=== PATIENT | male | born 1950 | race Caucasian/White ===

== ENCOUNTER 2016-10-26 09:37 | Inpatient (IN) | payer OTHER ==
[2016-10-10 08:19] VITALS: BMI 26.0
--- NOTE | 2016-10-10 08:46 | PAT Medication Instructions ---
Service Date Oct 10, 2016. Current Home Medication List Aspirin (Aspirin Ec), 81 MG PO QAM Finasteride (Finasteride), 5 MG PO QAM Ketoconazole (Topical) (Xolegel), 1 DOSE TOP Q2D PRN for PRN Metronidazole (Topical) (Metrogel), 1 DOSE TOP Q2D PRN for PRN Psyllium (Eq Fiber Therapy), 1 TSP PO QAM Tamsulosin Hcl (Flomax), 0.4 MG PO QAM Medication Instructions For Your Scheduled Surgery - Hold the following medications the morning of surgery: Psyllium (Eq Fiber Therapy), 1 TSP PO QAM Ketoconazole (Topical) (Xolegel), 1 DOSE TOP Q2D PRN Metronidazole (Topical) (Metrogel), 1 DOSE TOP Q2D PRN - Take the following medications the morning of surgery with a sip of water OTHERWISE NOTHING TO EAT OR DRINK AFTER MIDNIGHT: Tamsulosin Hcl (Flomax), 0.4 MG PO QAM Aspirin (Aspirin Ec), 81 MG PO QAM Finasteride (Finasteride), 5 MG PO QAM If you have any questions please call us at [phone] or [phone] or [phone]
[2016-10-10 09:29] LABS: BASO % 0.4 %; BASO ABS # 0.02 K/uL (0-0.2); COMPLETE YES; EOS % 1.9 %; HEMATOCRIT 43.6 % (42-52); IG% 0.2 %; LYMPH % 32.9 %; LYMPH ABS # 1.52 K/uL (1.2-3.4); MEAN CORPUSCULAR HEMOGLOBIN 33.1 pg (25-34); MEAN CORPUSCULAR HGB CONC 34.9 g/dl (32-36); MEAN PLATELET VOLUME 10.4 fL (7.4-10.4); MONO % 10.2 %; NEUT % 54.4 %; PLATELET COUNT 183 K/uL (130-400); RED BLOOD COUNT 4.59 M/uL (4.7-6.1); WHITE BLOOD COUNT 4.62 K/uL (4.8-10.8)
--- NOTE | 2016-10-10 09:39 | DIAGNOSTIC IMAGING REPORT ---
CHEST PREADMISSION(PA/LAT) CLINICAL HISTORY: Preoperative evaluation. COMPARISON STUDY: No previous studies for comparison. FINDINGS: Lung volumes are normal. There is no pneumothorax or pleural effusion. Mild left basilar opacity favors atelectasis. There is no evidence of pulmonary edema. Cardiomediastinal silhouette is normal. IMPRESSION: 1. No acute cardiopulmonary findings. 2. Minimal left basilar opacity which favors atelectasis. Electronically signed by: Werner Lobo M.D. 10/10/2016 9:37 AM Dictated Date/Time: 10/10/2016 9:33 AM
[2016-10-10 09:41] LABS: INR 1.1 (0.9-1.1); PROTHROMBIN TIME (PATIENT) 11.3 SECONDS (9.0-12.0)
[2016-10-10 10:22] LABS: BUN/CREATININE RATIO 16.9 (10-20); CREATININE 0.97 mg/dl (0.60-1.40); POTASSIUM 4.4 mmol/L (3.5-5.1)
--- NOTE | 2016-10-20 01:47 | HISTORY & PHYSICAL EXAMINATION ---
DATE OF ADMISSION: 10/26/2016 CHIEF COMPLAINT: Right hip pain and discomfort. HISTORY OF PRESENT ILLNESS: A 66-year-old gentleman, who presents for surgical treatment of his right hip. He has had a several year history of increasing right hip pain and discomfort. This gradually got worse over the years. He says he has been diagnosed with hip arthritis for 15 years. It has become more debilitating recently. He enjoys exercising, but having more and more difficulty doing this. Pain is mostly in his groin and thigh area. When he is active he pays for it the next day. He would like to have his hip replaced. PAST MEDICAL HISTORY: Noncontributory. PAST SURGICAL HISTORY: 1. Pilonidal cyst excision. 2. Vasectomy. 3. Fatty lipoma resection. 4. Multiple skin biopsies. 5. Oral surgery. ALLERGIES: None. CURRENT MEDICINES: Include: 1. Tamsulosin once a day. 2. Unspecified medicine - once a day for prostate. SOCIAL HISTORY: A 65-year-old male. He is . Has one drink per day. FAMILY HISTORY: No heart disease, blood clots or diabetes. REVIEW OF SYSTEMS: Negative for diabetes, neurologic problems, vascular problems or bleeding disorders. He denies any chest pain or shortness of breath. He did have a brother who apparently of a blood clot, but the patient has no underlying clotting disorder. PHYSICAL EXAMINATION: GENERAL: Reveals a pleasant, healthy appearing, middle-aged male. He looks to be in good health. HEENT: Benign. NECK: Supple. No lymphadenopathy. LUNGS: Clear to auscultation. HEART: Regular rate and rhythm. ABDOMEN: Soft, nontender and nondistended. EXTREMITIES: Grossly neurovascularly intact except as follows: Examination of the right hip and leg reveals the patient walks with just a slight bit of a limp. Leg lengths clinically appear pretty equal. He has got a lot of stiffness with attempted hip motion. It does recreate his pain in his groin and thigh. Negative straight leg raise. Internal rotation is -10. X-RAYS: X-rays of the right hip were reviewed. It shows advanced right hip DJD. He has got complete loss of his superior joint space. He has got osteophytes around the femoral head as well as the acetabulum. ASSESSMENT: A 66-year-old male, with advanced right hip degenerative joint disease. He has failed conservative treatment and would like to have his right hip replaced. PLAN: We are going to take him to the operating room and do a right total hip replacement. The risks and benefits of this procedure were explained to the patient including but not limited to DVT, PE, , infection, neurological injury, vascular injury, bleeding problem, pain, limited range of motion, stiffness, failure to relieve symptoms, incomplete relief of symptoms, need for further surgery in the future, fracture, leg length inequality, nerve palsy, dislocation, etc. The patient understands and desires to proceed. Informed consent was obtained. The patient has had a recent oral surgery on an infected tooth. This has been removed and his physician is convinced that his infection is cured. Clinically, he seems to be doing well and will proceed as above. As far as discharge plans this patient is planning to use the [facility] home health program. XOCHITL
[~2016-10-26] VITALS: Ht 177.8 cm; Wt 81.7 kg
[2016-10-26] VITALS (17 sets, daily range): BP systolic 98–133; BP diastolic 59–79; PULSE 60–78; TEMP 36.4–37.1; O2SAT 96–100; Ht 177.8 cm; Wt 81.7 kg
[~2016-10-26 09:37] MED LIST: ACETAMINOPHEN 500 MG TAB PO SCH; ASPI81TA28 PO; BUPIVACAINE 0.5 % 5 MG/1 ML PF 10ML VIAL ONE; CEFAZOLIN 2000 MG/60 ML D5W 60 ML IV SCH; FAMOTIDINE 20 MG TAB PO SCH; GABAPENTIN 300 MG CAP PO SCH; LACTATED RINGER'S 1000ML 1,000 ML IV SCH; LACTATED RINGER'S 1000ML 500 ML IV ONE; LACTATED RINGER'S 1000ML IV SCH; METOCLOPRAMIDE HCL 10 MG TAB PO SCH; MIDAZOLAM HCL 1 MG/ML 2ML VIAL ONE; MoRPHine SULFATE PF 1 MG/ML 10 ML AMP/VIAL ONE; PROPOFOL IV EMULSION 10 MG/ML 20 ML VIAL IV ONE; SCOPOLAMINE 1.5 MG TDSY TD SCH; TRANEXAMIC ACID INJ 1,000 MG in SODIUM CHLORIDE 0.9% 100ML 100 ML IV SCH
[2016-10-26] MEDS ORDERED: BACITRACIN 50000 UNIT VIAL ONE (10:21)
[2016-10-26] MEDS ORDERED: BUPIVACAINE/EPINEPHRINE 0.5% MPF 1:200,000 30 ML VIAL ONE ×2 (10:21→11:13)
[2016-10-26] MEDS ORDERED: PHENYLEPHRINE 100MCG/ML 5ML SYR IV PRN (11:15)
[2016-10-26] MEDS ORDERED: ATROPINE SULFATE 0.1 MG/ML 5ML SYR IV PRN (11:15)
[2016-10-26] MEDS ORDERED: EpHEDrine SULFATE INJ 50 MG/ML AMP IV PRN ×2 (11:15→11:30)
[2016-10-26] MEDS ORDERED: ONDANSETRON INJ 2 MG/ML 2 ML VIAL IV PRN ×2 (11:15→11:30)
[2016-10-26] MEDS ORDERED: KETOROLAC TROMETHAMINE 30 MG/ML VIAL IV. PRN ×2 (11:15→11:30)
[2016-10-26] MEDS ORDERED: MEPERIDINE HCL 25 MG/ML CARP IV PRN ×2 (11:15→11:30)
[2016-10-26] MEDS ORDERED: NALOXONE HCL INJ 1 MG in SODIUM CHLORIDE 0.9% 1000ML 1,000 ML IV PRN ×4 (11:19)
[2016-10-26] MEDS ORDERED: SODIUM CHLORIDE 0.9% 1000ML 1,000 ML IV PRN (11:19)
[2016-10-26] MEDS ORDERED: NALOXONE HCL INJ 0.08 MG in SYRINGE 1.8 ML IV PRN (11:19)
[2016-10-26] MEDS ORDERED: LACTATED RINGER'S 1000ML 500 ML IV PRN (11:19)
[2016-10-26] MEDS ORDERED: MoRPHine SULFATE PF 1 MG/ML 10 ML AMP/VIAL EPI PRN (11:30)
[2016-10-26] MEDS ORDERED: NALBUPHINE HCL INJ 10 MG/ML AMP IV PRN (11:30)
[2016-10-26] MEDS ORDERED: NO NARCOTICS OR SEDATIVES SCH (11:30)
[2016-10-26] MEDS ORDERED: DiphenhydrAMINE HCL 50 MG/ML VIAL IV PRN (11:30)
[2016-10-26] MEDS ORDERED: PROMETHAZINE HCL INJ 25 MG in SODIUM CHLORIDE 0.9% 50ML 50 ML IV PRN (11:30)
[2016-10-26] MEDS ORDERED: NALOXONE HCL 0.4 MG/1 ML VIAL/CARP IV PRN (11:30)
--- NOTE | 2016-10-26 11:33 | History & Physical Bridge Note ---
H&P Re-Evaluation Bridge Note: I have examined the patient, reviewed the History & Physical and in the interval since the performance of the History & Physical I have noted the following changes of clinical significance: No changes noted
[2016-10-26] MEDS ORDERED: EpHEDrine SULFATE 50MG/5ML SYR ONE (12:09)
[2016-10-26] MEDS ORDERED: PHENYLEPHRINE 100MCG/ML 5ML SYR ONE (12:09)
[2016-10-26] MEDS ORDERED: PHENYLEPHRINE HCL INJ 10 MG/ML VIAL ONE (12:15)
--- NOTE | 2016-10-26 13:12 | [facility] Post Operative Brief Note ---
Immediate Operative Summary Operative Date Oct 26, 2016. Pre-Operative Diagnosis Right Hip Degenerative Joint Disease Post-Operative Diagnosis Right Hip Degenerative Joint Disease Procedure(s) Performed Right Total Hip Arthoplasty Surgeon Dr. Dee Director [place] Surgeon(s) Huan Cleveland PA-C Estimated Blood Loss 300 CC Findings Right Hip DJD Specimens A: Right Femoral Head Drains None Anesthesia Spinal Complication(s) None Disposition Recovery Room / PACU
[2016-10-26] MEDS ORDERED: BISACODYL 10 MG SUPP PR PRN (13:15)
[2016-10-26] MEDS ORDERED: ALUMINUM/MAGNESIUM/SIMETH (MAALOX MAX) 30 ML UDC PO PRN (13:15)
[2016-10-26] MEDS ORDERED: MAGNESIUM HYDROXIDE SUSP 30 ML UDC PO PRN (13:15)
[2016-10-26] MEDS ORDERED: KETOCONAZOLE TOP PRN (13:15)
[2016-10-26] MEDS ORDERED: METRONIDAZOLE 0.75% TOPICAL GEL 45 GM TUBE TOP PRN (13:15)
[2016-10-26] MEDS ORDERED: TAMSULOSIN HCL 0.4 MG CAP PO PRN (13:15)
[2016-10-26] MEDS ORDERED: SILVER SULFADIAZINE 1% CR 50 GM JAR EXT PRN (13:15)
--- NOTE | 2016-10-26 13:43 | DIAGNOSTIC IMAGING REPORT ---
AP PELVIS AND RIGHT HIP 2 VIEWS CLINICAL HISTORY: Degenerative arthritis COMPARISON STUDY: No previous studies for comparison. FINDINGS: There are postsurgical changes of a total right hip arthroplasty. The acetabular and femoral components appear well seated. There is no dislocation. There are no fractures. There are overlying skin meredith. There is air within soft tissues consistent with recent surgery. IMPRESSION: Postsurgical changes of a total right hip arthroplasty. Electronically signed by: Kostas Alejo M.D. 10/26/2016 1:42 PM Dictated Date/Time: 10/26/2016 1:41 PM
--- NOTE | 2016-10-26 13:48 | OPERATIVE REPORT ---
DATE OF OPERATION: 10/26/2016 SURGEON: Dr. Tomasz Dee. REGULATORY PROCESS MANAGER: SHERLY Russell PREOPERATIVE DIAGNOSIS: Right hip degenerative joint disease. POSTOPERATIVE DIAGNOSIS: Same. PROCEDURE PERFORMED: Right ceramic on highly cross-linked polyethylene uncemented total hip arthroplasty. COMPLICATIONS: None. ESTIMATED BLOOD LOSS: 300 mL. FLUID REPLACEMENT: 1300 mL crystalloid fluid replacement. ANESTHESIA: Spinal. DRAINS: None. SPECIMENS: Right femoral head sent for pathology. OPERATIVE FINDINGS: Operative findings revealed advanced right hip DJD. He had fairly extensive diffuse grade 4 [id number] changes of the femoral head and acetabulum. Some small anterior osteophytes. Fairly large medial osteophyte. Small hip joint effusion. Some mild synovitis. OPERATIVE INDICATIONS: The patient is a 66-year-old gentleman who has had a several year history of increasing hip pain and discomfort that has gotten significantly worse over the past year. He failed all conservative treatment. He elected to proceed with operative treatment. OPERATIVE IMPLANTS: Operative implants consisted of: 1. A Biomet G7 size 56-mm acetabular shell. 2. A 6.5 cancellous acetabular screws, 1 at 35 mm in length and 1 at 25 mm in length. 3. An apex hole eliminator. 4. Highly cross-linked polyethylene liner with a 56 mm outer diameter and 36 mm inner diameter with a ramirez placed inferior and posterior. 5. A DePuy size 15 large stature high offset femoral stem. 6. A +1.5/36 mm ceramic articular ball. OPERATIVE PROCEDURE: The patient was taken to the operating room, identified and placed on the operating table in the supine position. All contact areas were appropriately padded. IV antibiotics were provided by anesthesia team. A spinal anesthetic had been implemented in the holding area. Yi catheter was placed in sterile fashion. The patient was then placed in the left lateral decubitus position. An axillary roll was placed. Stulberg hip positioner was used for positioning. The right hip and leg were then prepped and draped in the usual sterile fashion. A posterolateral approach to the right hip was then performed through a curvilinear incision centered over the greater trochanter. Sharp dissection was carried out through the subcutaneous tissue down to the level of the IT band and gluteal fascia. The IT band and gluteal fascia was incised longitudinally in line with the skin incision. The underlying greater trochanteric bursa was excised. The piriformis and external rotators were tagged and taken very carefully off the posterior aspect of the hip joint capsule. Great care was taken throughout the procedure to protect the sciatic nerve at all times. A posterior capsulotomy was then performed leaving a large flap for later repair. Hip was internally rotated and dislocated. Femoral neck osteotomy cut was made with the final cut 12 mm above the lesser trochanter. Femoral head was removed and sent for pathology. The femur was retracted anteriorly. Attention was then drawn to the acetabulum. The acetabular labrum was excised. The pulvinar fat was excised. Sequential reaming of the acetabulum was then performed beginning with a size 51 and progressing up to 55. A 56-mm Biomet G7 acetabular shell was then placed in about 40 degrees of lateral opening and 20 degrees of anteversion. It was fixed with two 6.5 cancellous acetabular screws. A trial liner was placed. Some small osteophytes were removed anteriorly. Attention was then drawn to the femur. The proximal femur was entered with Drivableie cutter followed by canal finder and lateralizing reamer. Sequential reaming of the femur was then performed beginning with a size 10 and progressing up to a 14.5. We got good chatter at 14.5. I broached beginning with a size 12 small and progressing up to a 15 large. I could not quite get this down to the calcar cut, but it was very close. We then trialed the hip. The hip was fully stable with all articular balls. With the +5, I just thought his length was a little bit long. With the standard implants, the soft tissue tension was a little bit lax, so we did use the high offset implant. By doing this, we were able to improve soft tissue tension and shortened his leg with a slightly smaller neck length. A +1.5 articular ball seemed to provide full stability of the hip in full extension, external rotation, flexion to 90 degrees, and internal rotation to 60+ degrees and the leg lengths appeared appropriate. I did place a ramirez very inferior and posterior to maximize stability in flexion. We elected to place these implants. All trial implants were removed. An apex hole eliminator was placed. Highly cross-linked polyethylene liner with a ramirez placed inferior and posterior was placed. A 15 large stature AML femoral stem was placed. We got excellent scratch fit. A +1.5 size 36-mm ceramic articular ball was placed. Hip was located and once again found to be stable. Attention was then drawn toward closing. The wound was irrigated with copious amounts of pulsatile lavage solution. I did inject locally with 60 mL of 0.5% Marcaine with epinephrine. The posterior capsule and external rotators were then repaired through drill holes in the posterior trochanter with #2 Ti-Cron suture. The IT band and gluteal fascia were then closed with #1 PDS suture in running fashion. The subcutaneous tissues were then closed with 2 layers, the deep layer in #1 Vicryl suture and the subcutaneous tissues with 2-0 Dexon suture in a buried interrupted fashion. Skin was closed skin meredith. Leg was then cleaned and dried and a sterile dressing with Xeroform, 4 x 4, sterile ABD pad and foam tape was applied. The patient then transferred to the recovery room in stable condition. The patient tolerated the procedure well with no complications. All needle and sponge counts were correct at the end of the operation. I attest to the content of the Intraoperative Record and any orders documented therein. Any exceptions are noted below. XOCHITL
--- NOTE | 2016-10-26 14:31 | Anesthesiology Progress Note ---
Anesthesia Post Op Note Date & Time Oct 26, 2016 at 14:30 Vital Signs Pain Intensity: 0 Vital Signs Past 12 Hours Date Time Temp Pulse Resp B/P Pulse Ox O2 Delivery O2 Flow Rate FiO2 10/26/16 14:00 37 70 16 104/61 99 Nasal Cannula 2 10/26/16 13:50 71 16 108/61 99 Nasal Cannula 2 10/26/16 13:40 77 16 115/67 99 Nasal Cannula 2 10/26/16 13:30 80 16 121/68 100 Nasal Cannula 2 10/26/16 13:20 79 12 116/59 100 Nasal Cannula 2 10/26/16 13:10 36.0 86 12 109/61 97 Room Air 10/26/16 10:17 36.6 68 20 133/79 98 Room Air Notes Mental Status: alert / awake / arousable, participated in evaluation Pt Amnestic to Procedure: Yes Nausea / Vomiting: adequately controlled Pain: adequately controlled Airway Patency, RR, SpO2: stable & adequate BP & HR: stable & adequate Hydration State: stable & adequate Anesthetic Complications: no major complications apparent
[2016-10-26] MEDS: D5W AND 1/2NSS + 20MEQ KCL 1,000 ML IV SCH ×2 (16:01→23:29)
[2016-10-26] MEDS: CHECK SCOPOLAMINE PATCH PLACEMENT SCH ×2 (16:01→23:28)
--- NOTE | 2016-10-26 17:59 | PROGRESS NOTE ---
DATE: 10/26/2016 SUBJECTIVE: A 66-year-old gentleman postop from a right total hip replacement. He is doing well. Not having any pain yet. No chest pain or shortness of breath. Not feeling dizzy or lightheaded. No nausea. OBJECTIVE: VITAL SIGNS: Temperature is 36.4. Vital signs stable. GENERAL: Reveals a healthy, pleasant, middle-aged male. He is sitting up in bed and looks comfortable. LUNGS: Clear to auscultation. HEART: Regular rate and rhythm. ABDOMEN: Soft, nontender, nondistended. EXTREMITIES: Grossly neurovascularly intact except as follows: Examination of the right hip and leg reveals the dressing to be clean, dry and intact. His leg lengths were equal. Hip is located. He can dorsiflex and plantarflex his foot appropriately. He is neurologically intact. X-RAYS: Images of the right hip from the recovery room were reviewed. It shows a right uncemented total hip arthroplasty. Components looked to be in good position. No signs of problems. ASSESSMENT: A 66-year-old gentleman postop from a right total hip replacement, doing well. His hip is located. His pain is controlled. He is neurologically intact. PLAN: 1. DVT prophylaxis including thigh-high TEDs, SCDs, and aspirin twice a day. 2. PT/OT. Weightbearing as tolerated. Right total hip protocol. 3. Pain control, doing well with current pain regimen. 4. IV antibiotics x 24 hours. 5. Disposition: Plan to discharge to home with some home health once adequately recovered.
[2016-10-26] MEDS: CEFAZOLIN IV 2,000 MG in DEXTROSE 5% 50ML 50 ML IV SCH (18:45)
[2016-10-26] MEDS: FERROUS GLUCONATE 324 MG TAB PO SCH (18:46)
[2016-10-26] MEDS: ACETAMINOPHEN 500 MG TAB PO SCH (18:46)
[2016-10-26] MEDS: KETOROLAC TROMETHAMINE 15 MG/ML VIAL IV. SCH ×2 (18:46→23:30)
[2016-10-26] MEDS ORDERED: TRANEXAMIC ACID INJ 1,000 MG in SODIUM CHLORIDE 0.9% 100ML 100 ML IV ONE (19:00)
[2016-10-26] MEDS: ASPIRIN 325 MG ECTAB PO SCH (21:28)
[2016-10-26] MEDS: DOCUSATE SODIUM 100 MG CAP PO SCH (21:28)
[2016-10-27] VITALS (9 sets, daily range): BP systolic 92–98; BP diastolic 50–56; PULSE 62–68; TEMP 36.8–37.4; O2SAT 92–99
[2016-10-27] MEDS: ACETAMINOPHEN 500 MG TAB PO SCH ×3 (02:24→17:49)
[2016-10-27] MEDS: CEFAZOLIN IV 2,000 MG in DEXTROSE 5% 50ML 50 ML IV SCH (02:24)
[2016-10-27] MEDS ORDERED: ZOLPIDEM TARTRATE 5 MG TAB PO PRN (05:00)
[2016-10-27] MEDS ORDERED: ONDANSETRON INJ 2 MG/ML 2 ML VIAL IV PRN (05:00)
[2016-10-27] MEDS ORDERED: MoRPHine SULFATE 2 MG/ML CARP IV PRN (05:00)
[2016-10-27] MEDS ORDERED: OXYCODONE HCL IR 5 MG TAB (IMMEDIATE RELEASE) PO PRN (05:00)
[2016-10-27] MEDS ORDERED: DC INTRASPINAL MORPHINE ONE (05:00)
[2016-10-27] MEDS ORDERED: METOCLOPRAMIDE HCL INJ 5 MG/ML 2 ML VIAL IV PRN (05:00)
[2016-10-27] MEDS: KETOROLAC TROMETHAMINE 15 MG/ML VIAL IV. SCH ×3 (06:04→17:50)
[2016-10-27 06:36] LABS: BASO % 0.1 %; BASO ABS # 0.01 K/uL (0-0.2); COMPLETE YES; EOS % 0.7 %; HEMATOCRIT 32.4 % (42-52); IG% 0.1 %; LYMPH % 18.4 %; LYMPH ABS # 1.26 K/uL (1.2-3.4); MEAN CELL VOLUME 96.7 fL (80-100); MEAN CORPUSCULAR HEMOGLOBIN 32.5 pg (25-34); MEAN CORPUSCULAR HGB CONC 33.6 g/dl (32-36); MEAN PLATELET VOLUME 9.9 fL (7.4-10.4); MONO % 8.8 %; NEUT % 71.9 %; PLATELET COUNT 127 K/uL (130-400); RED BLOOD COUNT 3.35 M/uL (4.7-6.1); WHITE BLOOD COUNT 6.83 K/uL (4.8-10.8)
[2016-10-27 07:09] LABS: BUN/CREATININE RATIO 15.9 (10-20); CALCIUM 7.8 mg/dl (8.5-10.1); CREATININE 0.79 mg/dl (0.60-1.40); POTASSIUM 3.8 mmol/L (3.5-5.1)
[2016-10-27] MEDS ORDERED: RXC5 PO (08:03)
[2016-10-27] MEDS ORDERED: ACET-1138 PO (08:03)
[2016-10-27] MEDS ORDERED: ASPEC325 PO (08:03)
[2016-10-27] MEDS ORDERED: FRRG PO (08:03)
--- NOTE | 2016-10-27 08:04 | Discharge Instructions ---
Discharge Instructions Date of Service Oct 27, 2016. Admission Reason for Admission: Right Hip Degenerative Joint Disease Discharge Discharge Diagnosis / Problem: Right HIp Replacement Discharge Goals Goal(s): Decrease discomfort, Improve function, Increase independence, Improve disease control, Therapeutic intervention Activity Recommendations Activity Limitations: per Instructions/Follow-up section (Total Hip PRecautions ) Weightbearing Status: Right weightbearing . Instructions / Follow-Up Instructions / Follow-Up ACTIVITY RECOMMENDATIONS: Physical Therapy: * Aggressive physical therapy is not usually needed. You will learn to take care of yourself safely and walk. * Follow the "Hip Precautions Instructions." * In some cases, the licensed master social worker at the hospital will arrange to have a therapist come to your house for the first couple of weeks to help you learn these skills. * You need to practice on your own or with the help of a family member as needed. * When you learn these skills, most of the therapy can be done on your own. Home Exercise: * You were shown a series of exercises in the hospital. Do these exercises three to four times each day including the exercises you were shown in physical therapy. Walking: * Get up and walk several times each day. For the first four weeks, try not to stand or walk for more than one hour at a time. If you do stand or walk for more than one hour, you will not hurt anything, but your leg will likely swell. * As you feel comfortable, you may change from the walker or crutches to a cane and then to independent walking. MEDICATIONS: New Medicine: * You will likely be taking one or more of these medicines: 1. Oxycodone - Take, as directed, when you need it, every four to six hours to control your pain. 2. Iron Sulfate - Take three times each day for the month after surgery to help you replace the blood lost during surgery. 3. Aspirin - Thins your blood to lessen the chance of forming a blood clot. * The most common side effects of pain medicine and iron are nausea and constipation. If nausea or constipation is too much of a problem or if you have any questions about your new medicines or doses, call [facility] at . We will try to help you manage these issues. VERY IMPORTANT TO READ AND REVIEW" Pain: * The immediate post-operative period after hip replacement surgery is often quite painful. * You are given a prescription for pain medicine. You should take it, as directed, when you need it, especially before physical therapy and before going to bed. Pain that interferes with sleep is very common and can last several months. * You will likely need pain medicine for the first two to four weeks. It will not stop all of the pain. The pain will lessen and as you feel better, you may change to milder pain medicine such as Tylenol. * The most common side effects of pain medicine are nausea and constipation, so don't take more than you need. SPECIAL CARE INSTRUCTIONS: TEDs/Elastic Stockings: * The white elastic stockings help limit swelling and prevent blood clots from forming in your legs. The more you wear them, the more they work. * Wear them for six weeks. Prevention of Infection: * Take antibiotics one hour before any dental cleaning, dental work, urological procedure, gastrointestinal procedure or any invasive surgery in order to prevent your new joint from getting infected. * You may get the antibiotics from the doctor performing the procedure or you may call our office at before and we will call in a prescription to the pharmacy of your choice. Things to Watch For: * Drainage from the incision site that occurs more than one week after your surgery. * Severely increased leg pain or swelling. * Increased redness at the incision site. * Fever above 102 degrees Fahrenheit. * Unusual chest pain or shortness of breath. * Unusual pain or burning with urination. Call [facility] at with any of the above problems or if you have any questions about your medicines or recovery. FOLLOW UP VISIT: Make an appointment to see your doctor for approximately two weeks after surgery for a progress check and staple removal by calling the office at . Current Hospital Diet Patient's current hospital diet: Regular Diet Discharge Diet Recommended Diet: Regular Diet Procedures Procedures Performed: Right Total Hip Arthoplasty Pending Studies Studies pending at discharge: no Medical Emergencies . Who to Call and When: Medical Emergencies: If at any time you feel your situation is an emergency, please call [phone] immediately. . Non-Emergent Contact Non-Emergency issues call your: Surgeon . "Provider Documentation" section prepared by Tomasz Dee. . VTE Core Measure Inpt VTE Proph given/why not?: Other Anticoagulation, T.E.D. Stockings, SCD's
[2016-10-27] MEDS: D5W AND 1/2NSS + 20MEQ KCL 1,000 ML IV SCH (08:24)
[2016-10-27] MEDS: CHECK SCOPOLAMINE PATCH PLACEMENT SCH ×3 (08:24→23:47)
[2016-10-27] MEDS: PANTOprazole SOD 40 MG TAB PO SCH (08:36)
[2016-10-27] MEDS: ASPIRIN 325 MG ECTAB PO SCH ×2 (08:36→23:59)
[2016-10-27] MEDS: TAMSULOSIN HCL 0.4 MG CAP PO SCH (08:36)
[2016-10-27] MEDS: MULTIVITAMIN TAB PO SCH (08:36)
[2016-10-27] MEDS: DOCUSATE SODIUM 100 MG CAP PO SCH ×2 (08:36→23:59)
[2016-10-27] MEDS: FINASTERIDE 5 MG TAB PO SCH (08:36)
[2016-10-27] MEDS: FERROUS GLUCONATE 324 MG TAB PO SCH ×3 (08:37→17:49)
[2016-10-27] MEDS: PSYLLIUM 58.6% PWD PACK S\\F PO SCH (08:37)
[2016-10-27] MEDS: TAPENTADOL ER 50 MG TABCR PO SCH ×2 (08:40→23:59)
--- NOTE | 2016-10-27 08:52 | PROGRESS NOTE ---
DATE: 10/27/2016 SUBJECTIVE: A 66-year-old gentleman postop day 1 from right hip replacement. He is doing quite well. He rates his pain as pretty minimal. No chest pain or shortness of breath. Not feeling dizzy or lightheaded. OBJECTIVE: VITAL SIGNS: Temperature 37.4. Vital signs stable. PHYSICAL EXAMINATION: GENERAL: Reveals a healthy, pleasant, middle-aged male. He is sitting up in bed reading a book and looks pretty comfortable. LUNGS: Clear to auscultation. HEART: Regular rate and rhythm. ABDOMEN: Soft, nontender, nondistended. EXTREMITIES: Grossly neurovascularly intact except as follows: Examination of the right hip and leg reveals the dressing to be clean, dry and intact. Thigh is soft and supple. His hip is located. He is neurologically intact. Not much swelling. LABORATORY DATA: Hemoglobin 10.9, hematocrit 32.4. Electrolytes are stable. ASSESSMENT: A 66-year-old gentleman postop day 1 from a right total hip replacement, doing pretty well. Pain seems to be controlled. His hip is located. He is neurologically intact. PLAN: 1. DVT prophylaxis including thigh-high TEDs, SCDs, and aspirin twice a day. 2. PT/OT. Weightbearing as tolerated. Right total hip protocol. 3. Pain control, doing pretty well with current pain regimen. 4. Disposition: Plan to discharge to home with some home health once adequately recovered.
[2016-10-27] MEDS ORDERED: METRONIDAZOLE TOP PRN (15:15)
[2016-10-27] MEDS ORDERED: KETOCONAZOLE 2% EXT PRN (16:00)
[2016-10-28] MEDS ORDERED: OXYCODONE IR HOME PACK PO SCH
[2016-10-28] MEDS: ACETAMINOPHEN 500 MG TAB PO SCH ×2 (02:48→10:16)
[2016-10-28] MEDS: KETOROLAC TROMETHAMINE 15 MG/ML VIAL IV. SCH ×2 (06:33)
[2016-10-28 06:37] VITALS: BP 93/53; PULSE 67; TEMP 36.9; O2SAT 95
--- NOTE | 2016-10-28 08:31 | PROGRESS NOTE ---
DATE: 10/28/2016 SUBJECTIVE: A 66-year-old gentleman postop day #2 from right total hip replacement. He is doing well. He rates his pain at worst as 5 after therapy and otherwise at 1 or 2. No chest pain or shortness of breath. He has already been up and walking the hallway this morning. OBJECTIVE: VITAL SIGNS: Temperature is 36.9. Vital signs stable. EXTREMITIES: Examination of the right hip and leg reveals the patient is sitting up in his chair and looks pretty comfortable. The dressings are clean, dry and intact. Hip is located. He can dorsiflex and plantarflex his foot appropriately. He is neurologically intact. ASSESSMENT: A 66-year-old gentleman postop day #2 from a right total hip replacement, doing well. Pain is controlled. Therapy has gone well. PLAN: 1. DVT prophylaxis including thigh-high TEDs, SCDs, and aspirin twice a day. 2. PT/OT. Weight bear as tolerated. Right total hip protocol. 3. Pain control, doing well with current pain regimen. 4. Disposition: Plan to discharge to home with some home later today. XOCHITL
[2016-10-28] MEDS: MULTIVITAMIN TAB PO SCH (08:34)
[2016-10-28] MEDS: FINASTERIDE 5 MG TAB PO SCH (08:34)
[2016-10-28] MEDS: TAMSULOSIN HCL 0.4 MG CAP PO SCH (08:35)
[2016-10-28] MEDS: FERROUS GLUCONATE 324 MG TAB PO SCH (08:35)
[2016-10-28] MEDS: PANTOprazole SOD 40 MG TAB PO SCH (08:35)
[2016-10-28] MEDS: DOCUSATE SODIUM 100 MG CAP PO SCH (08:40)
[2016-10-28] MEDS: TAPENTADOL ER 50 MG TABCR PO SCH (08:40)
[2016-10-28] MEDS: ASPIRIN 325 MG ECTAB PO SCH (08:40)
[2016-10-28] MEDS: PSYLLIUM 58.6% PWD PACK S\\F PO SCH (08:58)
[2016-10-28] MEDS ORDERED: NURSING VERBAL MED ORDER ONE (09:00)
[2016-10-28 09:02] VITALS: BP 93/53; PULSE 67; TEMP 36.9; O2SAT 95
[2016-10-28] MEDS ORDERED: FERROUS GLUCONATE 324 MG TAB PO SCH (09:45)
--- NOTE | 2016-11-08 06:32 | DISCHARGE SUMMARY ---
ADMITTING PHYSICIAN AND SURGEON: Dr. Dee. ADMITTING DIAGNOSIS: Right hip degenerative joint disease. SURGERY PERFORMED: Right total hip arthroplasty. SECONDARY DIAGNOSES: Noncontributory. CONSULTS: None obtained. HISTORY AND PHYSICAL EXAMINATION: Well documented in the patient's chart. HOSPITAL COURSE: The patient was admitted on 10/26/2016 underwent total hip arthroplasty, tolerated the procedure well. There were no complications. He was transferred to the PACU postoperatively and later to the orthopedic floor for further care. He was given Ancef for antibiotic prophylaxis, CAM stockings, SCDs and aspirin for DVT prophylaxis. Hemoglobin, hematocrit and vital signs were monitored during his hospital stay and remained stable. He developed some postoperative anemia, did not require any blood transfusions. There were no complications. By postoperative day #2, he was tolerating a general diet, pain was controlled with oral pain medicine. He was participating in physical therapy and had no signs or symptoms of deep vein thrombosis. On postop day #2, he was discharged home and set up with home health services. He was given printed discharge instructions including prescriptions for extra strength Tylenol, aspirin 325 mg b.i.d., iron supplement and oxycodone. Continue her home medicines with the exception of his home dose of aspirin which was changed. Continue physical therapy, weightbearing as tolerated, CAM stockings, total hip precautions and follow up in 10-12 days or sooner if there are any problems or concerns.
[2017-01-22] MEDS ORDERED: TAMS0.4C38 PO (08:19)
[2017-01-22] MEDS ORDERED: PRS5 PO (08:19)
[2017-01-22] MEDS ORDERED: PSYL48.511 PO (08:19)
[2017-01-22] MEDS ORDERED: METR0.7527 TOP (08:19)
[2017-01-22] MEDS ORDERED: KETO2GEL2 TOP (08:19)
[2017-01-23] MEDS ORDERED: LVNIS80 SQ (13:34)
[2017-01-23] MEDS ORDERED: CMD75 PO (13:36)
[2017-01-23] MEDS ORDERED: LVNIS120 SC (13:56)
[2017-01-23] MEDS ORDERED: ASPEC81 PO (17:29)
== END 2016-10-28 10:42 | disposition home health service (06) | DRG 470 ==
LOC: ENRESERVTM → ENRESERVDT → C.ACU 09:37 → C.3E 13:16
PROVIDERS: ADMIT Orthopaedic Surgery Sports Medicine; ATTEND Orthopaedic Surgery Sports Medicine
PROC: 0SR904A Replacement of Right Hip Joint with Ceramic on Polyethylene Synthetic Substitute, Uncemented, Open Approach (ICD-10-PCS; principal; 2016-10-26 11:15)
DX: M16.11 Unilateral primary osteoarthritis, right hip (principal); M25.451 Effusion, right hip; M65.9 Synovitis and tenosynovitis, unspecified; N40.0 Benign prostatic hyperplasia without lower urinary tract symptoms; Z87.891 Personal history of nicotine dependence; Z79.82 Long term (current) use of aspirin; Z79.899 Other long term (current) drug therapy

== ENCOUNTER 2017-01-22 20:07 | Inpatient (IN) | payer OTHER ==
[~2017-01-22] VITALS: Ht 177.8 cm; Wt 78.7 kg
[~2017-01-22 20:07] MED LIST changes: +ACET-1138 PO; -ACETAMINOPHEN 500 MG TAB PO SCH; +ASPEC325 PO; -ASPI81TA28 PO; -BUPIVACAINE 0.5 % 5 MG/1 ML PF 10ML VIAL ONE; -CEFAZOLIN 2000 MG/60 ML D5W 60 ML IV SCH; -FAMOTIDINE 20 MG TAB PO SCH; +FRRG PO; -GABAPENTIN 300 MG CAP PO SCH; +KETO2GEL2 TOP; -LACTATED RINGER'S 1000ML 1,000 ML IV SCH; -LACTATED RINGER'S 1000ML 500 ML IV ONE; -LACTATED RINGER'S 1000ML IV SCH; -METOCLOPRAMIDE HCL 10 MG TAB PO SCH; +METR0.7527 TOP; -MIDAZOLAM HCL 1 MG/ML 2ML VIAL ONE; -MoRPHine SULFATE PF 1 MG/ML 10 ML AMP/VIAL ONE; -PROPOFOL IV EMULSION 10 MG/ML 20 ML VIAL IV ONE; +PRS5 PO; +PSYL48.511 PO; +RXC5 PO; -SCOPOLAMINE 1.5 MG TDSY TD SCH; +TAMS0.4C38 PO; -TRANEXAMIC ACID INJ 1,000 MG in SODIUM CHLORIDE 0.9% 100ML 100 ML IV SCH
[2017-01-22] MEDS ORDERED: IBUP-1277 PO (20:34)
[2017-01-22] MEDS ORDERED: SODIUM CHLORIDE 0.9% 1000ML 1,000 ML IV STA (20:35)
[2017-01-22] MEDS ORDERED: ONDANSETRON INJ 2 MG/ML 2 ML VIAL IV STA (20:35)
[2017-01-22] MEDS ORDERED: FENTANYL CITRATE INJ 50 MCG/1 ML 2 ML VIAL IV STA (20:35)
--- NOTE | 2017-01-22 20:50 | EMERGENCY ROOM VISIT NOTE ---
History Report prepared by Wyatt: Kalina Watters Under the Supervision of: Dr. Mandie Reyes M.D. First contact with patient: 20:15 Chief Complaint: PAIN (GENERALIZED) Stated Complaint: BACK PAIN - LEFT SIDE - BOTTOM OF RIB CAGE History of Present Illness The patient is a 66 year old male who presents to the Emergency Room with complaints of constant left sided back pain starting about 18 hours ago and worsening about 2-3 hours ago. He describes the pain to be located at the bottom of the left rib cage. He denies any pain radiation. He has worsening pain with breathing. He denies any shortness of breath with exertion. He currently rates a pain intensity of 5-6/10. He took Ibuprofen without relief. The patient has a history of kidney stones but denies any similar symptoms. He has a history of hip replacement occurring at the end of September and he was placed on Aspirin. He does not have a history of blood clots. He traveled to [place] via airplane last week. He did not have any [id number] travels. He did not have any recent falls or trauma. The patient denies any cough, urinary symptoms, lower extremity swelling, or any other complaints. Source of History: patient Onset: about 18 hours ago Position: back (left sided) Symptom Intensity: 5-6/10 Timing: constant, worsening Modifying Factors (Worsening): breathing Modifying Factors (Relieving): ibuprofen (without relief) Associated Symptoms: No cough, No urinary symptoms Review of Systems See HPI for pertinent positives & negatives. A total of 10 systems reviewed and were otherwise negative. Past Medical & Surgical Medical Problems: (1) BPH (benign prostatic hypertrophy) (2) DVT (deep venous thrombosis) (3) History of colon polyps (4) History of dysplastic nevus (5) History of urinary calculi (6) Kidney stones (7) Pulmonary embolism (8) Right Hip DJD (9) Rosacea Surgical Problems: (1) History of total left hip arthroplasty (2) Status post excision of lipoma (3) Status post surgical removal of pilonidal cyst Family History FH: pneumonia Social History Smoking Status: Never Smoker Marital Status: Occupation Status: retired Current/Historical Medications Scheduled Aspirin (Aspirin EC Low Dose), 1 TAB PO DAILY Enoxaparin (Lovenox), 120 MG SC DAILY Finasteride (Finasteride), 5 MG PO QAM Psyllium (Eq Fiber Therapy), 1 TSP PO QAM Tamsulosin Hcl (Flomax), 0.4 MG PO QAM Warfarin Sod (Coumadin), 1 TAB PO DAILY Scheduled PRN Ketoconazole (Topical) (Xolegel), 1 APPLN TOP Q2D PRN for Rosacea Metronidazole (Topical) (Metrogel), 1 APPLN TOP UD PRN for Rosacea Allergies Coded Allergies: Adhesives (Verified Allergy, Mild, RASH SORE, 10/26/16) CAN USE PAPER TAPE NO KNOWN DRUG ALLERGIES (Verified Allergy, Unknown, ., 10/26/16) Physical Exam Vital Signs Date Time Temp Pulse Resp B/P (MAP) Pulse Ox O2 Delivery O2 Flow Rate FiO2 01/22/17 22:09 Nasal Cannula 3.0 01/22/17 21:55 85 16 126/75 94 Room Air 01/22/17 21:15 84 Room Air 01/22/17 21:11 89 01/22/17 20:08 37.1 95 18 143/84 95 Room Air Physical Exam Vital signs reviewed. General: Well-appearing, in no significant distress. HEENT: No scleral icterus, PERRLA, neck supple. Atraumatic. Cardiovascular: Regular rate and rhythm, no extra sounds. Pulmonary: Clear to auscultation bilaterally, normal work of breathing. Abdomen: Soft, nontender, nondistended, positive bowel sounds. Musculoskeletal: Atraumatic, no peripheral edema. CVA tenderness over the left, pain with deep inspiration. Neurologic: Patient awake alert and oriented x 3, full strength in all 4 extremities. Cranial nerves 2 through 12 grossly intact. Skin: Warm, dry, no rash Medical Decision & Procedures ER Provider Diagnostic Interpretation: X-ray results as stated below per interpretation by me and the radiologist: CHEST ONE VIEW PORTABLE CLINICAL HISTORY: 66 years-old Male presenting with L lower rib/back pain. TECHNIQUE: Portable upright AP view of the chest was obtained. COMPARISON: 10/10/2016. FINDINGS: Mildly low lung volumes with hypoventilatory changes, which may be due to inspiratory effort. Cardiomediastinal silhouette otherwise normal. Interval development of minimal opacity at the left lung base. No other focal infiltrate. No large effusion or pneumothorax. Osseous structures normal. Gaseous distention of colon. IMPRESSION: 1. Left basilar opacity new from prior, likely atelectasis. Electronically signed by: Osorio Ortega M.D. 01/22/2017 9:07 PM Dictated Date/Time: 01/22/2017 9:[address] results as stated below per my review and radiologist interpretation: ABD/PELVIS NO IV OR ORAL CONT CLINICAL HISTORY: 66 years-old Male presenting with L flank pain. TECHNIQUE: Multidetector CT of the abdomen and pelvis was performed without the use of intravenous contrast. IV contrast: None. A dose lowering technique was used consistent with the principles of ALARA (as low as reasonably achievable). COMPARISON: None. CT DOSE (mGy.cm): The estimated cumulative dose is 399.18 mGy.cm. FINDINGS: Mopper topogram: Total right hip arthroplasty. Lung bases: Dependent groundglass opacities, possibly atelectasis. Normal heart size. No pericardial or pleural effusion. Liver: Normal morphology. Normal parenchymal density. Two focal hypodensities along the fissure, indeterminate but possibly cysts. Biliary: No gross evidence of biliary ductal dilatation. Normal gallbladder. Pancreas: Normal. Fat containing region along the dorsum of the pancreas most consistent with invagination of fat. Spleen: Normal. Adrenal glands: Normal. Kidneys and ureters: Nonobstructing 2 mm calculus in the interpolar region of the right kidney (series 3 image 233). No additional calculus. No hydronephrosis. Hypodensity posteriorly in the interpolar region of the left kidney likely cysts but indeterminate. Ureters normal. Gastrointestinal tract: Mild stool burden in the mildly distended right colon. Inspissated material in the distal small bowel may suggest delayed transit. No bowel obstruction. Peritoneal cavity: No free fluid or intraperitoneal gas. Bladder: Incompletely evaluated secondary to underdistention. Pelvic organs: Prostate and seminal vesicles normal. Vasculature: Normal noncontrast appearance. Lymph nodes: No lymphadenopathy allowing for noncontrast technique. Abdominal wall: Normal. Musculoskeletal: Total right hip arthroplasty. IMPRESSION: 1. Nonobstructing 2 mm calculus in the right kidney. No acute intra-abdominal pathology. Electronically signed by: Osorio Ortega M.D. 01/22/2017 9:38 PM Dictated Date/Time: 01/22/2017 9:27 PM (CHEST FOR PE) ANGIO WITH CLINICAL HISTORY: 66 years-old Male presenting with chest pain and shortness of breath. TECHNIQUE: Multidetector CT angiography of the chest was performed after administration of intravenous contrast. 3-D volumetric and maximum intensity projection (MIP) images were subsequently reconstructed for review. IV contrast: 116 mL of Optiray 320. A dose lowering technique was used consistent with the principles of ALARA (as low as reasonably achievable). COMPARISON: None. CT DOSE (mGy.cm): The estimated cumulative dose is 259.56 mGy.cm. FINDINGS: Mopper topogram: Unremarkable. Pulmonary vasculature: The study is adequate for assessment of the pulmonary vascular tree. Multiple filling defects in the left lower lobe pulmonary artery and segmental vessels. Less extensive filling defects in subsegmental pulmonary arteries in the right lower lobe. Main pulmonary artery not enlarged. No flattening of the interventricular septum. No intracardiac filling defect. Remaining chest: On soft tissue windows, normal thyroid and thoracic inlet. No axillary, supraclavicular, mediastinal, or hilar lymphadenopathy. Three-vessel aortic arch. Normal heart size. No pericardial or pleural effusion. Upper abdomen unremarkable. On lung windows, extensive groundglass and solid opacities in the lower lobes, left greater than right, and a similar distribution as pulmonary emboli. Airways patent. On bone windows, few degenerative changes of the thoracic spine. IMPRESSION: 1. Bilateral pulmonary emboli without radiographic evidence of right heart straightening. 2. Extensive opacities in the lower lobes in a similar distribution as pulmonary emboli. Although these are not characteristic of pulmonary infarcts at this time, these are likely related to vascular compromise. The report will be called/faxed according to standard departmental protocol. Electronically signed by: Osorio Ortega M.D. 01/22/2017 10:07 PM Dictated Date/Time: 01/22/2017 10:01 PM Laboratory Results 01/22/17 20:54 Red Blood Count 4.65, Mean Corpuscular Volume 93.5, Mean Corpuscular Hemoglobin 31.6, Mean Corpuscular Hemoglobin Concent 33.8, Mean Platelet Volume 10.5, Neutrophils (%) (Auto) 67.5, Lymphocytes (%) (Auto) 23.5, Monocytes (%) (Auto) 7.1, Eosinophils (%) (Auto) 1.6, Basophils (%) (Auto) 0.3, Neutrophils # (Auto) 5.13, Lymphocytes # (Auto) 1.78, Monocytes # (Auto) 0.54, Eosinophils # (Auto) 0.12, Basophils # (Auto) 0.02 01/22/17 20:54 Test 01/22/17 20:45 01/22/17 20:54 01/22/17 21:00 01/22/17 22:36 Urine Color YELLOW Urine Appearance CLEAR (CLEAR) Urine pH 5.0 (4.5-7.5) Urine Specific [place] 1.025 (1.000-1.030) Urine Protein NEG (NEG) Urine Glucose (UA) NEG (NEG) Urine Ketones NEG (NEG) Urine Occult Blood TRACE (NEG) Urine Nitrite NEG (NEG) Urine Bilirubin NEG (NEG) Urine Urobilinogen NEG (NEG) Urine Leukocyte Esterase NEG (NEG) Urine WBC (Auto) 1-5 /hpf (0-5) Urine RBC (Auto) 0-4 /hpf (0-4) Urine Hyaline Casts (Auto) 1-5 /lpf (0-5) Urine Epithelial Cells (Auto) 0-5 /lpf (0-5) Urine Bacteria (Auto) NEG (NEG) White Blood Count 7.59 K/uL (4.8-10.8) Red Blood Count 4.65 M/uL (4.7-6.1) Hemoglobin 14.7 g/dL (14.0-18.0) Hematocrit 43.5 % (42-52) Mean Corpuscular Volume 93.5 fL (80-100) Mean Corpuscular Hemoglobin 31.6 pg (25-34) Mean Corpuscular Hemoglobin Concent 33.8 g/dl (32-36) Platelet Count 170 K/uL (130-400) Mean Platelet Volume 10.5 fL (7.4-10.4) Neutrophils (%) (Auto) 67.5 % Lymphocytes (%) (Auto) 23.5 % Monocytes (%) (Auto) 7.1 % Eosinophils (%) (Auto) 1.6 % Basophils (%) (Auto) 0.3 % Neutrophils # (Auto) 5.13 K/uL (1.4-6.5) Lymphocytes # (Auto) 1.78 K/uL (1.2-3.4) Monocytes # (Auto) 0.54 K/uL (0.11-0.59) Eosinophils # (Auto) 0.12 K/uL (0-0.5) Basophils # (Auto) 0.02 K/uL (0-0.2) RDW Standard Deviation 44.1 fL (36.4-46.3) RDW Coefficient of Variation 12.9 % (11.5-14.5) Immature Granulocyte % (Auto) 0.0 % Immature Granulocyte # (Auto) 0.00 K/uL (0.00-0.02) Activated Partial Thromboplast Time 25.2 SECONDS (21.0-31.0) Partial Thromboplastin Ratio 1.0 Anion Gap 7.0 mmol/L (3-11) Est Creatinine Clear Calc Drug Dose 79.3 ml/min Estimated GFR () 98.7 Estimated GFR (Non- 85.2 BUN/Creatinine Ratio 16.3 (10-20) Calcium Level 9.3 mg/dl (8.5-10.1) Magnesium Level 2.3 mg/dl (1.8-2.4) Total Bilirubin 0.4 mg/dl (0.2-1) Direct Bilirubin < 0.1 mg/dl (0-0.2) Aspartate Amino Transf (AST/SGOT) 23 U/L (15-37) Alanine Aminotransferase (ALT/SGPT) 30 U/L (12-78) Alkaline Phosphatase 62 U/L (45-117) Total Protein 7.4 gm/dl (6.4-8.2) Albumin 3.8 gm/dl (3.4-5.0) Bedside D-Dimer > 450 ng/mlFEU (0-450) Homocysteine 8.9 UMOL/L (<11.4) Laboratory results per my review. Medications Administered Medications (Trade) Dose Ordered Sig/Pilar Route Start Time Stop Time Status Last Admin Dose Admin Sodium Chloride 1,000 ml @ 200 mls/hr Q5H STAT IV 01/22/17 20:35 01/23/17 00:34 DC 01/22/17 20:58 200 MLS/HR Fentanyl Citrate (Fentanyl Inj) 100 mcg NOW STAT IV 01/22/17 20:35 01/22/17 20:43 DC 01/22/17 20:58 100 MCG Ondansetron HCl (Zofran Inj) 4 mg NOW STAT IV 01/22/17 20:35 7/25/17 20:43 DC 01/22/17 20:56 4 MG Hydromorphone HCl (Dilaudid Inj) 1 mg NOW STAT IV 01/22/17 22:04 01/22/17 22:05 DC 01/22/17 22:07 1 MG ECG Indication: back/shoulder pain Rate (beats per minute): 89 Rhythm: normal sinus Findings: no acute ischemic change, no ectopy ED Course 2015: Past medical records reviewed. The patient was evaluated in room B09. A complete history and physical examination was performed. 2034: Zofran Inj 4 mg IV, Fentanyl Inj 100 mcg IV, Sodium Chloride 1000 ml @ 200 mls/hr IV 2203: Dilaudid Inj 1 mg IV 2234: Upon reevaluation, the patient is resting comfortably. I discussed laboratory and radiographic results with him. He verbalized agreement of the treatment plan. [facility] The patient will be evaluated for further management and care. Medical Decision Differential diagnosis includes but is not limited to PE, pneumonia, pneumothorax, kidney stones, pyelonephritis, musculoskeletal strain. This patient was evaluated and appeared to be in no significant distress. IV access was obtained and laboratory work was drawn. The patient did have significant pain to palpation of the flank. A urine sample was obtained and is significant for trace blood. CT scan abdomen and pelvis was ordered and there is no evidence of renal calculi. Only very stranding on the left is noted. Laboratory work reveals an elevated d-dimer. Chest CT was performed and is significant for bilateral pulmonary emboli. I did speak with the patient is family regarding the findings. Patient stated that his brother and sister have both had pulmonary emboli. The hypercoagulability profile was ordered. The patient was started on heparin initially. She and her family are aware of plan and agree. Hospitalist was consulted for further management. Medication Reconcilliation Current Medication List: was personally reviewed by me Blood Pressure Screening Patient's blood pressure: Normal blood pressure Consults Time Called: 2219 Consulting Physician: Dr. Hale of the [facility] Hospitalist Service Returned Call: [phone] [facility] Impression Primary Impression: Bilateral pulmonary embolism Scribe Attestation The scribe's documentation has been prepared under my direction and personally reviewed by me in its entirety. I confirm that the note above accurately reflects all work, treatment, procedures, and medical decision making performed by me. Departure Information Dispostion Being Evaluated By Hospitalist Prescriptions Aspirin (Aspirin EC Low Dose) 81 Mg Ectab 1 TAB PO DAILY for 30 Days, #30 TABS 3 Refills Prov: Leni Navarro M.D. 01/23/17 Enoxaparin (LOVENOX) 120 Mg/0.8 Ml Inj 120 MG SC DAILY for 5 Days, #5 EA Prov: Leni Navarro M.D. 01/23/17 Warfarin Sod (Coumadin) 7.5 Mg Tab 1 TAB PO DAILY for 30 Days, #30 TABS Prov: Leni Navarro M.D. 01/23/17 Referrals Earline ALTMAN M.D. (PCP) Patient Instructions My [facility]
--- NOTE | 2017-01-22 21:08 | DIAGNOSTIC IMAGING REPORT ---
CHEST ONE VIEW PORTABLE CLINICAL HISTORY: 66 years-old Male presenting with L lower rib/back pain. TECHNIQUE: Portable upright AP view of the chest was obtained. COMPARISON: 10/10/2016. FINDINGS: Mildly low lung volumes with hypoventilatory changes, which may be due to inspiratory effort. Cardiomediastinal silhouette otherwise normal. Interval development of minimal opacity at the left lung base. No other focal infiltrate. No large effusion or pneumothorax. Osseous structures normal. Gaseous distention of colon. IMPRESSION: 1. Left basilar opacity new from prior, likely atelectasis. Electronically signed by: Osorio Ortega M.D. 01/22/2017 9:07 PM Dictated Date/Time: 01/22/2017 9:05 PM
[2017-01-22 21:09] LABS: BASO % 0.3 %; BASO ABS # 0.02 K/uL (0-0.2); COMPLETE YES; EOS % 1.6 %; HEMATOCRIT 43.5 % (42-52); LYMPH % 23.5 %; LYMPH ABS # 1.78 K/uL (1.2-3.4); MEAN CELL VOLUME 93.5 fL (80-100); MEAN CORPUSCULAR HEMOGLOBIN 31.6 pg (25-34); MEAN CORPUSCULAR HGB CONC 33.8 g/dl (32-36); MEAN PLATELET VOLUME 10.5 fL (7.4-10.4); MONO % 7.1 %; NEUT % 67.5 %; PLATELET COUNT 170 K/uL (130-400); RED BLOOD COUNT 4.65 M/uL (4.7-6.1); WHITE BLOOD COUNT 7.59 K/uL (4.8-10.8)
[2017-01-22 21:13] LABS: URINE APPEARANCE CLEAR (CLEAR); URINE BILIRUBIN NEG (NEG); URINE COLOR YELLOW; URINE EPITHELIAL CELL AUTO 0-5 /lpf (0-5); URINE NITRITE NEG (NEG); URINE SPECIFIC GRAVITY 1.025 (1.000-1.030); UROBILINOGEN NEG (NEG); ZZUR CULT IF INDIC CLEAN CATCH NO
[2017-01-22 21:14] LABS: REVIEW REQ? NO
[2017-01-22 21:15] LABS: MANUAL MICROSCOPIC REQUIRED? NO
[2017-01-22 21:20] LABS: PROTHROMBIN TIME (PATIENT) 10.7 SECONDS (9.0-12.0)
[2017-01-22 21:26] LABS: ALT/SGPT 30 U/L (12-78); BLOOD UREA NITROGEN 15 mg/dl (7-18); BUN/CREATININE RATIO 16.3 (10-20); CALCIUM 9.3 mg/dl (8.5-10.1); CARBON DIOXIDE 28 mmol/L (21-32); CHLORIDE 108 mmol/L (98-107); CREATININE 0.92 mg/dl (0.60-1.40); GLUCOSE 99 mg/dl (70-99); MAGNESIUM 2.3 mg/dl (1.8-2.4); POTASSIUM 3.6 mmol/L (3.5-5.1); SODIUM 143 mmol/L (136-145)
[2017-01-22 21:29] LABS: ALKALINE PHOSPHATASE 62 U/L (45-117); AST/SGOT 23 U/L (15-37)
--- NOTE | 2017-01-22 21:40 | DIAGNOSTIC IMAGING REPORT ---
ABD/PELVIS NO IV OR ORAL CONT CLINICAL HISTORY: 66 years-old Male presenting with L flank pain. TECHNIQUE: Multidetector CT of the abdomen and pelvis was performed without the use of intravenous contrast. IV contrast: None. A dose lowering technique was used consistent with the principles of ALARA (as low as reasonably achievable). COMPARISON: None. CT DOSE (mGy.cm): The estimated cumulative dose is 399.18 mGy.cm. FINDINGS: Internal Controls Consultant topogram: Total right hip arthroplasty. Lung bases: Dependent groundglass opacities, possibly atelectasis. Normal heart size. No pericardial or pleural effusion. Liver: Normal morphology. Normal parenchymal density. Two focal hypodensities along the fissure, indeterminate but possibly cysts. Biliary: No gross evidence of biliary ductal dilatation. Normal gallbladder. Pancreas: Normal. Fat containing region along the dorsum of the pancreas most consistent with invagination of fat. Spleen: Normal. Adrenal glands: Normal. Kidneys and ureters: Nonobstructing 2 mm calculus in the interpolar region of the right kidney (series 3 image 233). No additional calculus. No hydronephrosis. Hypodensity posteriorly in the interpolar region of the left kidney likely cysts but indeterminate. Ureters normal. Gastrointestinal tract: Mild stool burden in the mildly distended right colon. Inspissated material in the distal small bowel may suggest delayed transit. No bowel obstruction. Peritoneal cavity: No free fluid or intraperitoneal gas. Bladder: Incompletely evaluated secondary to underdistention. Pelvic organs: Prostate and seminal vesicles normal. Vasculature: Normal noncontrast appearance. Lymph nodes: No lymphadenopathy allowing for noncontrast technique. Abdominal wall: Normal. Musculoskeletal: Total right hip arthroplasty. IMPRESSION: 1. Nonobstructing 2 mm calculus in the right kidney. No acute intra-abdominal pathology. Electronically signed by: Osorio Ortega M.D. 01/22/2017 9:38 PM Dictated Date/Time: 01/22/2017 9:27 PM
[2017-01-22] MEDS ORDERED: OPTIRAY 320 IV PRN (21:45)
[2017-01-22] MEDS ORDERED: HYDROmorphone INJ 1 MG/ML SYR IV STA (22:04)
--- NOTE | 2017-01-22 22:08 | DIAGNOSTIC IMAGING REPORT ---
(CHEST FOR PE) ANGIO WITH CLINICAL HISTORY: 66 years-old Male presenting with chest pain and shortness of breath. TECHNIQUE: Multidetector CT angiography of the chest was performed after administration of intravenous contrast. 3-D volumetric and maximum intensity projection (MIP) images were subsequently reconstructed for review. IV contrast: 116 mL of Optiray 320. A dose lowering technique was used consistent with the principles of ALARA (as low as reasonably achievable). COMPARISON: None. CT DOSE (mGy.cm): The estimated cumulative dose is 259.56 mGy.cm. FINDINGS: Community Services Officer topogram: Unremarkable. Pulmonary vasculature: The study is adequate for assessment of the pulmonary vascular tree. Multiple filling defects in the left lower lobe pulmonary artery and segmental vessels. Less extensive filling defects in subsegmental pulmonary arteries in the right lower lobe. Main pulmonary artery not enlarged. No flattening of the interventricular septum. No intracardiac filling defect. Remaining chest: On soft tissue windows, normal thyroid and thoracic inlet. No axillary, supraclavicular, mediastinal, or hilar lymphadenopathy. Three-vessel aortic arch. Normal heart size. No pericardial or pleural effusion. Upper abdomen unremarkable. On lung windows, extensive groundglass and solid opacities in the lower lobes, left greater than right, and a similar distribution as pulmonary emboli. Airways patent. On bone windows, few degenerative changes of the thoracic spine. IMPRESSION: 1. Bilateral pulmonary emboli without radiographic evidence of right heart straightening. 2. Extensive opacities in the lower lobes in a similar distribution as pulmonary emboli. Although these are not characteristic of pulmonary infarcts at this time, these are likely related to vascular compromise. The report will be called/faxed according to standard departmental protocol. Electronically signed by: Osorio Ortega M.D. 01/22/2017 10:07 PM Dictated Date/Time: 01/22/2017 10:01 PM
[2017-01-22] MEDS ORDERED: ACETAMINOPHEN 325 MG TAB PO PRN (22:30)
--- NOTE | 2017-01-22 22:38 | History and Physical ---
History & Physical Date & Time of Service: Jan 22, 2017 at 22:38 . Chief Complaint: left-sided chest pain . Primary Care Physician: Earline ALTMAN M.D. History of Present Illness Source: patient, clinic records, hospital records 66 YO male followed by Dr. Altman. He enjoys good health and is physically active. Medial problems include BPH and remote history of ureteral calculus. Underwent uncomplicated left ROSENDO by Dr. Dee on 10/26/16. Received aspirin for VTE prophylaxis. Recently traveled to and from [place] by air. Returned home about 5 days prior to admission. Pt estimates that periods of immobilization on planes were only about 1 hour at a time. Developed left-sided chest / back pain this morning around 0300. Sudden onset of the discomfort. Rated the pain as 3/10. It did not radiate. No fever, cough, hemoptysis, SOB. Thought that he might be passing a renal calculus. Did not take any analgesics at that time. Went back to sleep; re-awakened abound 0530 with persistent pain, unchanged. Around 1200 the pain was somewhat more severe. He took ibuprofen with perhaps minimal improvement. Pain became more severe around 1800 and was noted to be worse with inspiration. Cheriton dyspneic as the pain worsened. No pain or swelling in lower extremities. He came to the ED for evaluation. CTA of chest in ED demonstrated bilateral pulmonary emboli. . Past Medical/Surgical History Chronic and Resolved Medical Problems: (1) BPH (benign prostatic hypertrophy) Status: Chronic (2) History of colon polyps Permanent Comment: small tubular adenoma 2014 Status: Chronic (3) History of dysplastic nevus Status: Chronic (4) History of urinary calculi Status: Chronic (5) Kidney stones Status: Resolved (6) Right Hip DJD Status: Resolved (7) Rosacea Status: Chronic Surgical Problems: (1) History of total left hip arthroplasty Permanent Comment: Dr. Dee 10/20/16 Status: Chronic (2) Status post excision of lipoma Status: Chronic (3) Status post surgical removal of pilonidal cyst Status: Chronic . Family History FATHER Prostate cancer MOTHER Congestive heart failure Melanoma BROTHER Pulmonary embolism (associated with femur fx) SISTER Melanoma Pulmonary embolism Social History Smoking Status: Former Smoker Alcohol Use: 1 glass of wine daily Marital Status: Occupational Status: retired (enterprise systems engineer) Immunizations History of Influenza Vaccine: Yes History of Pneumococcal: Yes Multi-Drug Resistant Organisms History of MDRO: No Allergies Coded Allergies: Adhesives (Verified Allergy, Mild, RASH SORE, 10/26/16) CAN USE PAPER TAPE NO KNOWN DRUG ALLERGIES (Verified Allergy, Unknown, ., 10/26/16) Home Medications Scheduled Aspirin (Aspirin Chewable), 81 MG PO DAILY Finasteride (Finasteride), 5 MG PO QAM Psyllium (Eq Fiber Therapy), 1 TSP PO QAM Tamsulosin Hcl (Flomax), 0.4 MG PO QAM Scheduled PRN Ibuprofen (Advil), 400 MG PO Q6H PRN for Pain Ketoconazole (Topical) (Xolegel), 1 APPLN TOP Q2D PRN for Rosacea Metronidazole (Topical) (Metrogel), 1 APPLN TOP UD PRN for Rosacea Review of Systems Constitutional: + weight loss (intential wt loss with diet + exercise), No fever Eyes: No worsening of vision, No diplopia ENT: No hearing loss, No nasal symptoms, No sore throat Respiratory: + problem reported (as noted above in HPI) Cardiovascular: + problem reported (as noted above in HPI) Abdomen: + constipation, No pain, No nausea, No vomiting, No diarrhea, No GI bleeding Genitourinary - Male: + urinary hesitancy, No hematuria, No dysuria Neurologic: + problem reported (no headaches), No weakness Endocrine: No fatigue, No excessive thirst, No excessive urination Hematologic / Lymphatic: No abnormal bleeding/bruising, No swollen lymph nodes Integumentary: No rash, No new/changing skin lesions Physical Exam Vital Signs Date Time Temp Pulse Resp B/P (MAP) Pulse Ox O2 Delivery O2 Flow Rate FiO2 01/22/17 22:09 Nasal Cannula 3.0 01/22/17 21:55 85 16 126/75 94 Room Air 01/22/17 21:11 89 01/22/17 20:08 37.1 95 18 143/84 95 Room Air General Appearance: WD/WN, + moderate distress Head: normocephalic, atraumatic Eyes: normal inspection, PERRL, EOMI ENT: normal ENT inspection, hearing grossly normal, pharynx normal Neck: supple, no adenopathy, thyroid normal, trachea midline Respiratory/Chest: no respiratory distress, no accessory muscle use, + rales ( few left base) Cardiovascular: regular rate, rhythm, no edema, no gallop, no JVD, no murmur, normal peripheral pulses, + pertinent finding (normal P2) Abdomen/GI: normal bowel sounds, non tender, soft, no organomegaly, no pulsatile mass Extremities/Musculoskelatal: normal inspection, no calf tenderness, normal capillary refill, no pedal edema 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 (PERRL, EOMI, no dysarthria, no facial palsy), no motor/sensory deficits (motor upper and lower extr 5/5), alert , normal mood/affect, oriented x 3 Skin: normal color, warm/dry, no rash, + pertinent finding (numerous seborrheic keratoses) Lymphatic: no adenopathy (cervical) Diagnostics Laboratory Results Results Past 24 Hours Test 01/22/17 20:45 01/22/17 20:54 01/22/17 21:00 01/22/17 22:18 Range/Units Urine Color YELLOW Urine Appearance CLEAR CLEAR Urine pH 5.0 4.5-7.5 Urine Specific [place] 1.025 1.000-1.030 Urine Protein NEG NEG Urine Glucose (UA) NEG NEG Urine Ketones NEG NEG Urine Occult Blood TRACE NEG Urine Nitrite NEG NEG Urine Bilirubin NEG NEG Urine Urobilinogen NEG NEG Urine Leukocyte Esterase NEG NEG Urine WBC (Auto) 1-5 0-5 /hpf Urine RBC (Auto) 0-4 0-4 /hpf Urine Hyaline Casts (Auto) 1-5 0-5 /lpf Urine Epithelial Cells (Auto) 0-5 0-5 /lpf Urine Bacteria (Auto) NEG NEG White Blood Count 7.59 4.8-10.8 K/uL Red Blood Count 4.65 4.7-6.1 M/uL Hemoglobin 14.7 14.0-18.0 g/dL Hematocrit 43.5 42-52 % Mean Corpuscular Volume 93.5 80-100 fL Mean Corpuscular Hemoglobin 31.6 25-34 pg Mean Corpuscular Hemoglobin Concent 33.8 32-36 g/dl Platelet Count 170 130-400 K/uL Mean Platelet Volume 10.5 7.4-10.4 fL Neutrophils (%) (Auto) 67.5 % Lymphocytes (%) (Auto) 23.5 % Monocytes (%) (Auto) 7.1 % Eosinophils (%) (Auto) 1.6 % Basophils (%) (Auto) 0.3 % Neutrophils # (Auto) 5.13 1.4-6.5 K/uL Lymphocytes # (Auto) 1.78 1.2-3.4 K/uL Monocytes # (Auto) 0.54 0.11-0.59 K/uL Eosinophils # (Auto) 0.12 0-0.5 K/uL Basophils # (Auto) 0.02 0-0.2 K/uL RDW Standard Deviation 44.1 36.4-46.3 fL RDW Coefficient of Variation 12.9 11.5-14.5 % Immature Granulocyte % (Auto) 0.0 % Immature Granulocyte # (Auto) 0.00 0.00-0.02 K/uL Prothrombin Time 10.7 9.0-12.0 SECONDS Prothromb Time International Ratio 1.0 0.9-1.1 Activated Partial Thromboplast Time 25.2 21.0-31.0 SECONDS Partial Thromboplastin Ratio 1.0 Sodium Level 143 136-145 mmol/L Potassium Level 3.6 3.5-5.1 mmol/L Chloride Level 108 98-107 mmol/L Carbon Dioxide Level 28 21-32 mmol/L Anion Gap 7.0 3-11 mmol/L Blood Urea Nitrogen 15 7-18 mg/dl Creatinine 0.92 0.60-1.40 mg/dl Est Creatinine Clear Calc Drug Dose 79.3 ml/min Estimated GFR () 98.7 Estimated GFR (Non- 85.2 BUN/Creatinine Ratio 16.3 10-20 Random Glucose 99 70-99 mg/dl Calcium Level 9.3 8.5-10.1 mg/dl Magnesium Level 2.3 1.8-2.4 mg/dl Total Bilirubin 0.4 0.2-1 mg/dl Direct Bilirubin < 0.1 0-0.2 mg/dl Aspartate Amino Transf (AST/SGOT) 23 15-37 U/L Alanine Aminotransferase (ALT/SGPT) 30 12-78 U/L Alkaline Phosphatase 62 45-117 U/L Total Protein 7.4 6.4-8.2 gm/dl Albumin 3.8 3.4-5.0 gm/dl Bedside D-Dimer > 450 0-450 ng/mlFEU Diagnostic Radiology PORT CXR (interpreted by Radiology) FINDINGS: Mildly low lung volumes with hypoventilatory changes, which may be due to inspiratory effort. Cardiomediastinal silhouette otherwise normal. Interval development of minimal opacity at the left lung base. No other focal infiltrate. No large effusion or pneumothorax. Osseous structures normal. Gaseous distention of colon. IMPRESSION: 1. Left basilar opacity new from prior, likely atelectasis. Electronically signed by: Osorio Ortega M.D. 01/22/2017 9:07 PM CTA CHEST (interpreted by Radiology) IMPRESSION: 1. Bilateral pulmonary emboli without radiographic evidence of right heart straightening. 2. Extensive opacities in the lower lobes in a similar distribution as pulmonary emboli. Although these are not characteristic of pulmonary infarcts at this time, these are likely related to vascular compromise. The report will be called/faxed according to standard departmental protocol. Electronically signed by: Osorio Ortega M.D. 01/22/2017 10:[address] ABDOMEN + PELVIS (interpreted by Radiology) IMPRESSION: 1. Nonobstructing 2 mm calculus in the right kidney. No acute intra-abdominal pathology. Electronically signed by: Osorio Ortega M.D. 01/22/2017 9:38 PM . EKG EKG performed at 20:55 reviewed and demonstrated NSR at 90 / minute, no acute ST or T-wave changes. . Impression Assessment and Plan BILATERAL PULMONARY EMBOLI Patient presented to ED with left-sided pleuritic chest pain. O2 saturations as low as 84%. CTA of chest demonstrated bilateral pulmonary emboli. Status post ROSENDO about 3 months ago. 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 Patient recently traveled to [place] by air, but periods immobilization were relatively short. VTE could be considered possibly provoked or unprovoked. 2 siblings have history of thromboembolic disease. Brother had DVT/PE associated with a femur fracture. Sister had a pulmonary embolism without apparent provocation. Studies for underlying hypercoagulable condition were obtained in the ED before enoxaparin was initiated. Patient has no history of malignancy. Patient has lost some weight, but is clearly intentional with diet and exercise. Colonoscopy 2014 demonstrated a small tubular adenoma. Father had history of prostate carcinoma Patient has been followed by Urology for BPH. Most recent PSA was normal, but hasn't been rechecked for a few years. Would be reasonable to recheck PSA in light of family history prostate cancer and apparent unprovoked VTE. Mother and sister have history of melanoma. Patient has history of dysplastic nevus; subsequent rechecks with Dermatology have not revealed any evidence of malignancy. Check venous duplex lower extremities. No evidence of right heart strain by exam, EKG, or diagnostic imaging; therefore , no need for echo. Initial management will consist of SQ enoxaparin. Anticipate transition to oral therapy with either warfarin or a DOAC; patient was given printed information regarding both options. He has a prescription plan. Options permitted by his formulary should be checked before transitioning to oral therapy. Duration of therapy to be determined after pending studies are resulted. Consider outpatient Hematology consultation. Analgesics + short course of glucocorticoids for pleuritic chest pain. HYPOXIA / PULMONARY ATELECTASIS O2 saturations as low as 84% in ED. Hypoxia secondary to pulmonary emboli; atelectasis contributing factor. Supplemental O2 PRN. Incentive spirometry. BPH Continue finasteride and tamsulosin. VTE PROPHYLAXIS Receiving SQ enoxaparin as noted above for acute pulmonary emboli. RESUSCITATION STATUS Discussed with patient. He has a living will. He would like resuscitation attempted in the event of a cardiopulmonary arrest if there is a reasonable chance of a meaningful recovery, but does not want prolonged extraordinary measures if prognosis is poor. Therefore, code status = "Level 1" (full resuscitation). DISPOSITION Admit to Telemetry Unit. Expected discharge to home. Medical follow-up with Dr. Altman. . VTE Prophylaxis VTE Risk Assessment Done? Y/N: Yes Risk Level: High Given or contraindicated: Enoxaparin (Lovenox)SQ Additional Copies To Tomasz Dee M.D.
[2017-01-22] MEDS ORDERED: ENOXAPARIN 80 MG/0.8 ML SYR SQ STA (22:55)
[2017-01-22 23:43] VITALS: BP 131/80; PULSE 85; TEMP 37.3; O2SAT 93; Ht 177.8 cm; Wt 78.7 kg
[2017-01-23] VITALS (11 sets, daily range): BP systolic 97–122; BP diastolic 56–79; PULSE 65–80; TEMP 36.4–37.1; O2SAT 90–95
[2017-01-23] MEDS ORDERED: HYDROmorphone INJ 1 MG/ML SYR IV PRN (00:30)
[2017-01-23] MEDS ORDERED: METHYLPREDNISOLONE IV 40 MG in SYRINGE 0 ML IV ONE (00:45)
[2017-01-23] MEDS ORDERED: ASPCH81X PO (03:40)
[2017-01-23] MEDS ORDERED: SENNA 8.6 MG TAB PO PRN (03:45)
[2017-01-23] MEDS: TAMSULOSIN HCL 0.4 MG CAP PO SCH (07:53)
[2017-01-23] MEDS: FINASTERIDE 5 MG TAB PO SCH (07:53)
[2017-01-23] MEDS: PSYLLIUM 58.6% PWD PACK S\\F PO SCH (07:54)
[2017-01-23] MEDS: ACETAMINOPHEN 500 MG TAB PO PRN (07:55)
--- NOTE | 2017-01-23 09:28 | DIAGNOSTIC IMAGING REPORT ---
ULTRASOUND BILATERAL LOWER EXTREMITY VENOUS CLINICAL HISTORY: Pulmonary embolus. COMPARISON STUDY: No priors. TECHNIQUE: Real-time, grayscale, and color Doppler sonography of the deep veins of the right and left lower extremity was performed from the inguinal crease to the calf. Compression and augmentation were utilized. FINDINGS: Right lower extremity: There is nearly occlusive deep venous thrombosis identified in the right common femoral vein which extends into the proximal superficial femoral vein. The mid to distal superficial femoral vein and popliteal vein are patent and normally compressible. The greater saphenous vein and the profunda femoris vein at the junction with the common femoral vein are clear. The visualized calf veins are patent. Left lower extremity: There is no sonographic evidence of deep venous thrombosis identified in the left lower extremity. The common femoral, superficial femoral, and popliteal veins are patent and normally compressible. The greater saphenous vein and the profunda femoris vein at the junction with the common femoral vein are clear. The visualized calf veins are patent. IMPRESSION: 1. There is nearly occlusive deep venous thrombosis identified in the right common femoral vein which extends into the superficial femoral vein. 2. The remaining deep veins of the right lower extremity are clear. 3. There is no sonographic evidence of deep venous thrombosis identified in the left lower extremity. Electronically signed by: Maciej Hahn M.D. 01/23/2017 9:27 AM Dictated Date/Time: 01/23/2017 9:25 AM
[2017-01-23] MEDS: ENOXAPARIN 80 MG/0.8 ML SYR SQ SCH ×2 (11:11→22:58)
[2017-01-23] MEDS ORDERED: LVNIS80 SQ (13:34)
--- NOTE | 2017-01-23 13:35 | Discharge Instructions ---
Discharge Instructions Date of Service Jan 23, 2017. Admission Reason for Admission: Pulmonary Emboli Discharge Discharge Diagnosis / Problem: (1) DVT (deep venous thrombosis) (2) Bilateral pulmonary embolism VTE Date & Time Date of VTE Diagnosis: Jan 22, 2017 Time of VTE Diagnosis: 21:00 Discharge Goals Goal(s): Decrease discomfort, Improve disease control, Diagnostic testing, Therapeutic intervention Activity Recommendations Activity Limitations: resume your previous activity . Instructions / Follow-Up Instructions / Follow-Up HOSPITAL FOLLOW UP : 01/29/2017 1:00 PM Earline Scherer MD General Internal Medicine [facility]UL[facility] CLINIC FOLLOW UP AT [facility] OFF[facility] WILL CALL WITH APPOINTMENT PLEASE HAVE REFERRAL TO HEMATOLOGY FOR FURTHER WORK UP FOR BLOOD CLOT DISORDER Medication Instructions: * Warfarin is a medicine prescribed to prevent blood clots * Warfarin will thin your blood and help prevent new clots * Take your medications exactly as directed * Never skip a dose. Never take a double dose. If you miss a dose, take it as soon as you remember * It is important for your doctor to monitor your prothrombin time (PT). This is a lab test * Keep your appointment for lab tests Risk of Adverse Drug Reactions and Interactions: * Warfarin increases your risk of bleeding * The food you eat and other medications you take can affect how Warfarin works in your body * Ask your doctor about daily aspirin therapy * It is very important to talk with your doctor about all of the other medicines , antibiotics, vitamins or herbal products that you are taking * All of your medication must be approved by your doctor, including new medicines, as well as medicines you have taken before you started taking Warfarin Diet: * In order for Warfarin to work properly, it is important to keep your intake of Vitamin K as consistent as possible * You should avoid any sudden change in Vitamin K intake * Report any significant changes in your diet or weight to your doctor Call your Primary Care doctor if you experience any of the following: * Swelling or Pain in your leg * Sudden, continuous pain deep in a muscle * Pain that worsens when you are active or when you stand still for a long time * Chest Pain * Sudden Shortness of Breath * Rapid or pounding heart beat * Fainting * Dizziness * Cough with blood or bloody sputum * Sweating more than normal * Bruises * Heavy or uncontrolled bleeding * Blood in your urine, stool or vomit * Black or tarry stools Caring for Your Self at Home: * Avoid sitting, standing or lying down for long periods without moving your legs and feet * When traveling by car, stop to get out and move around at least once every 3 hours * On long airplane, train or bus rides, get up and move around when possible * If you can't get up, wiggle your toes and tighten your calves to keep your blood moving Follow Up: It is important for you to keep your follow up appointments with your medical provider. 01/29/2017 1:00 PM Earline Scherer MD General Internal Medicine [facility] LAB WORK: PT/INR ON Saturday Current Hospital Diet Patient's current hospital diet: Regular Diet Discharge Diet Recommended Diet: Regular Diet Pending Studies Studies pending at discharge: yes List of pending studies: PT /INR CHECK ON Saturday FOLLOW UP AT ANTICOAGULATION CLINIC FOLLOW UP WITH RESULT FOR HYPERCOAGULABLE WORK UP Medical Emergencies . Who to Call and When: Medical Emergencies: If at any time you feel your situation is an emergency, please call 911 immediately. . Non-Emergent Contact Non-Emergency issues call your: Primary Care Provider . . "Provider Documentation" section prepared by Leni Navarro. . VTE Core Measure Inpt VTE Proph given/why not?: Enoxaparin (Lovenox)SQ, Warfarin (Coumadin) Reason no anticoag overlap I/P: Treatment provided - N/A Reason no anticoag overlap @DC: Treatment provided - N/A
[2017-01-23] MEDS ORDERED: CMD75 PO (13:36)
--- NOTE | 2017-01-23 13:38 | Progress Note ---
Internal Med Progress Note Date of Service: Jan 23, 2017. Provider Documentation: SUBJECTIVE: feels much better than yesterday no complain of pleuritic chest pain /no MOSQUERA has minimum cough -no productive OBJECTIVE: Vital Signs-as noted below Exam: General-comfortable , no sign of distress Eyes-sclera non icteric ENT-NAD Neck-no JVD Lungs-no rale or wheeze noted Heart-regular S1/S2 Abdomen-soft, non tender Extremities-no rash or deformity , no calf tenderness noted Neuro-AAO x3, no focal neurological deficit Lab data as noted below. ASSESSMENT & PLAN: BILATERAL PULMONARY EMBOLI/LOWER EXT DVT Patient presented to ED with left-sided pleuritic chest pain/hypoxia CTA of chest demonstrated bilateral pulmonary emboli. lower ext Doppler shows : nearly occlusive deep venous thrombosis identified in the right common femoral vein which extends into the superficial femoral vein. no DVT on Rt femoral vein risk factor for DVT/PE Status post ROSENDO about 3 months ago. family hx of blood clots : 2 siblings have history of thromboembolic disease. Brother had DVT/PE associated with a femur fracture. Sister had a pulmonary embolism without apparent provocation. hypercoagulable work up obtained in the ED before enoxaparin was initiated. Patient has no history of malignancy. Patient has lost some weight, but is clearly intentional with diet and exercise. Colonoscopy 2014 demonstrated a small tubular adenoma. Father had history of prostate carcinoma Patient has been followed by Urology for BPH. PSA -wnl ' Pt is continued with therapeutic Lovenox bridge -will need at least 5 days of overlap tx or 2 days of overlap while INR is therapeutic will start pt on Coumadin ( very high co pay for Direct oral anticoagulants ) script sent to Pt's Pharmacy [address] [facility] pay for 7 days supply to twice daily dose 250 $ changed dose to once daily 1.5 mg /kg -120mg /daily for 5 days for less co -pay Coagulation clinic at [facility] notified for continued follow up of anticoagulation tx pt given booklet for Coumadin will benefit with outpatient Hematology consultation. no complain of pleuritic chest pain.-Prednisone D/radha HYPOXIA / PULMONARY ATELECTASIS secondary to pulmonary emboli; atelectasis pt is using Incentive spirometry. weaned off 02 , in room air at rest /requiring intermittent 02 while ambulation expecting improvement of MOSQUERA /hypoxia with exertion with ongoing anticoagulation ECHO ordered to assess rt heart strain BPH Continue finasteride and tamsulosin. PSA wnl VTE PROPHYLAXIS Receiving SQ enoxaparin therapeutic dose /Coumadin RESUSCITATION STATUS level 1 full code DISPOSITION cont to monitor in Telemetry Unit. Expected discharge to home. Medical follow-up with Dr. Bills . Vital Signs: Date Time Temp Pulse Resp B/P (MAP) Pulse Ox O2 Delivery O2 Flow Rate FiO2 01/23/17 12:00 94 Room Air 01/23/17 11:22 36.7 70 18 117/72 (87) 94 Room Air 01/23/17 08:00 94 Nasal Cannula 2.0 01/23/17 07:54 36.4 77 16 122/79 (93) 94 Nasal Cannula 2.0 01/23/17 04:00 95 Nasal Cannula 2.0 01/23/17 03:20 36.5 70 15 118/71 (87) 94 Nasal Cannula 2.0 01/22/17 23:43 37.3 85 18 131/80 93 Room Air 01/22/17 23:02 88 20 124/68 95 01/22/17 22:09 Nasal Cannula 3.0 01/22/17 21:55 85 16 126/75 94 Room Air 01/22/17 21:15 84 Room Air 01/22/17 21:11 89 01/22/17 20:08 37.1 95 18 143/84 95 Room Air Lab Results: Results Past 24 Hours Test 01/22/17 20:45 01/22/17 20:54 01/22/17 21:00 01/22/17 22:36 Range/Units Urine Color YELLOW Urine Appearance CLEAR CLEAR Urine pH 5.0 4.5-7.5 Urine Specific [place] 1.025 1.000-1.030 Urine Protein NEG NEG Urine Glucose (UA) NEG NEG Urine Ketones NEG NEG Urine Occult Blood TRACE NEG Urine Nitrite NEG NEG Urine Bilirubin NEG NEG Urine Urobilinogen NEG NEG Urine Leukocyte Esterase NEG NEG Urine WBC (Auto) 1-5 0-5 /hpf Urine RBC (Auto) 0-4 0-4 /hpf Urine Hyaline Casts (Auto) 1-5 0-5 /lpf Urine Epithelial Cells (Auto) 0-5 0-5 /lpf Urine Bacteria (Auto) NEG NEG White Blood Count 7.59 4.8-10.8 K/uL Red Blood Count 4.65 4.7-6.1 M/uL Hemoglobin 14.7 14.0-18.0 g/dL Hematocrit 43.5 42-52 % Mean Corpuscular Volume 93.5 80-100 fL Mean Corpuscular Hemoglobin 31.6 25-34 pg Mean Corpuscular Hemoglobin Concent 33.8 32-36 g/dl Platelet Count 170 130-400 K/uL Mean Platelet Volume 10.5 7.4-10.4 fL Neutrophils (%) (Auto) 67.5 % Lymphocytes (%) (Auto) 23.5 % Monocytes (%) (Auto) 7.1 % Eosinophils (%) (Auto) 1.6 % Basophils (%) (Auto) 0.3 % Neutrophils # (Auto) 5.13 1.4-6.5 K/uL Lymphocytes # (Auto) 1.78 1.2-3.4 K/uL Monocytes # (Auto) 0.54 0.11-0.59 K/uL Eosinophils # (Auto) 0.12 0-0.5 K/uL Basophils # (Auto) 0.02 0-0.2 K/uL RDW Standard Deviation 44.1 36.4-46.3 fL RDW Coefficient of Variation 12.9 11.5-14.5 % Immature Granulocyte % (Auto) 0.0 % Immature Granulocyte # (Auto) 0.00 0.00-0.02 K/uL Prothrombin Time 10.7 9.0-12.0 SECONDS Prothromb Time International Ratio 1.0 0.9-1.1 Activated Partial Thromboplast Time 25.2 21.0-31.0 SECONDS Partial Thromboplastin Ratio 1.0 Sodium Level 143 136-145 mmol/L Potassium Level 3.6 3.5-5.1 mmol/L Chloride Level 108 98-107 mmol/L Carbon Dioxide Level 28 21-32 mmol/L Anion Gap 7.0 3-11 mmol/L Blood Urea Nitrogen 15 7-18 mg/dl Creatinine 0.92 0.60-1.40 mg/dl Est Creatinine Clear Calc Drug Dose 79.3 ml/min Estimated GFR () 98.7 Estimated GFR (Non- 85.2 BUN/Creatinine Ratio 16.3 10-20 Random Glucose 99 70-99 mg/dl Calcium Level 9.3 8.5-10.1 mg/dl Magnesium Level 2.3 1.8-2.4 mg/dl Total Bilirubin 0.4 0.2-1 mg/dl Direct Bilirubin < 0.1 0-0.2 mg/dl Aspartate Amino Transf (AST/SGOT) 23 15-37 U/L Alanine Aminotransferase (ALT/SGPT) 30 12-78 U/L Alkaline Phosphatase 62 45-117 U/L Total Protein 7.4 6.4-8.2 gm/dl Albumin 3.8 3.4-5.0 gm/dl Bedside D-Dimer > 450 0-450 ng/mlFEU Test 01/23/17 06:39 Range/Units Prostate Specific Antigen 1.990 0.000-4.000 ng/ml
[2017-01-23] MEDS ORDERED: LVNIS120 SC (13:56)
[2017-01-23] MEDS ORDERED: NURSING DECISION MEDICATION ORDER SCH (15:30)
[2017-01-23] MEDS ORDERED: COUGH DROP (SUGAR FREE) LOZ 24 LOZ/1 BOX PO PRN (15:45)
[2017-01-23] MEDS: WARFARIN SOD 5 MG TAB PO SCH (15:55)
--- NOTE | 2017-01-23 16:20 | ECHOCARDIOGRAM REPORT ---
*NOTICE TO RECEIVING [employer] This information is strictly Confidential and protected under [place] law. [place] law prohibits you from making any further disclosure of this information unless further disclosure is expressly permitted by the written consent of the person to whom it pertains or is authorized by law. A general authorization for the release of medical or other information is not sufficient for this purpose. Hospital accepts no responsibility if the information is made available to any other person, INCLUDING THE PATIENT. Interpretation Summary * Name: ABA RUSSELL Study Date: 01/23/2017 02:36 PM BP: 117/72 mmHg * Patient Location: C.2T\S\S241\S\2 HR: 70 * : 1950 (M/d/yyyy) Gender: Male Height: 70 in * Age: 66 yrs Ethnicity: CA Weight: 176 lb * Ordering Physician: Leni Navarro * Referring Physician: Self, Referred * Performed By: Deshawn Cain RCS * * Reason For Study: Pulmonary HTN * BSA: 2.0 m2 * -- Conclusions -- * The left ventricle is normal in size. * There is borderline concentric left ventricular hypertrophy. * The left ventricular wall motion is normal. * Left ventricular systolic function is normal. * Ejection Fraction = 65-70%. * Grade I diastolic dysfunction, (abnormal relaxation pattern). * The right ventricle is normal in size and function. * Doppler findings do not suggest pulmonary hypertension. * A patent foramen ovale is present. Procedure Details * A complete two-dimensional transthoracic echocardiogram was performed (2D, M-mode, Doppler and color flow Doppler). * A saline contrast injection was performed to assess for cardiac shunting. * The injection was performed through an intravenous line in the right arm. * The attending nurse who injected the saline contrast was Iam Anderson RN. * A total of 10 cc of agitated saline was given. Left Ventricle * The left ventricle is normal in size. * There is borderline concentric left ventricular hypertrophy. * Left ventricular systolic function is normal. * Ejection Fraction = 65-70%. * The left ventricular wall motion is normal. Right Ventricle * The right ventricle is normal in size and function. Atria * The left atrial size is normal. * Right atrial size is normal. * Atrial septal aneurysm incidentally noted, with small, hemodynamically insigificant shunt. Consider daily aspirin for stroke prophylaxis. Closure not currently indicated. * A patent foramen ovale is present. * Injection of contrast documented an interatrial shunt. Mitral Valve * The mitral valve anatomy is normal. * There is no mitral valve stenosis. * There is trace mitral regurgitation. Tricuspid Valve * The tricuspid valve anatomy is normal. * There is no tricuspid stenosis. * There is trace tricuspid regurgitation. * Doppler findings do not suggest pulmonary hypertension. Aortic Valve * The aortic valve is trileaflet. * No hemodynamically significant valvular aortic stenosis. * Trace aortic regurgitation. Pulmonic Valve * The pulmonic valve is not well visualized. Great Vessels * The aortic root is normal size. Pericardium/Pleural * There is no pericardial effusion. Great Vessels * Normal inferior vena cava diameter and respiratory variation suggests normal central venous pressure. Left Ventricular Diastolic Function * Grade I diastolic dysfunction, (abnormal relaxation pattern). MMode 2D Measurements and Calculations IVSd 1.0 cm IVSs 1.2 cm LVIDd 4.4 cm LVIDs 2.8 cm LVPWd 0.99 cm LVPWs 1.2 cm IVS/LVPW 1.0 FS 36.5 % EDV(Teich) 87.7 ml ESV(Teich) 29.3 ml EF(Teich) 66.5 % EDV(cubed) 85.2 ml ESV(cubed) 21.8 ml EF(cubed) 74.4 % % IVS thick 16.5 % % LVPW thick 18.9 % LV mass(C)d 147.4 grams LV mass(C)dI 74.5 grams/m\S\2 LV mass(C)s 95.5 grams LV mass(C)sI 48.3 grams/m\S\2 CO(Teich) 3.7 l/min CI(Teich) 1.9 l/min/m\S\2 SV(Teich) 58.3 ml SI(Teich) 29.5 ml/m\S\2 CO(cubed) 4.1 l/min CI(cubed) 2.1 l/min/m\S\2 SV(cubed) 63.4 ml SI(cubed) 32.1 ml/m\S\2 Ao root diam 3.6 cm Ao root area 10.3 cm\S\2 ACS 2.0 cm LA dimension 3.6 cm asc Aorta Diam 3.7 cm LA/Ao 0.98 LVAd ap4 29.3 cm\S\2 LVLd ap4 8.2 cm EDV(MOD-sp4) 87.0 ml LVAs ap4 13.9 cm\S\2 LVLs ap4 6.0 cm ESV(MOD-sp4) 28.0 ml EF(MOD-sp4) 67.8 % LVAd ap2 23.3 cm\S\2 LVLd ap2 7.4 cm EDV(MOD-sp2) 61.0 ml LVAs ap2 10.3 cm\S\2 LVLs ap2 5.2 cm ESV(MOD-sp2) 18.0 ml EF(MOD-sp2) 70.5 % CO(MOD-sp4) 3.8 l/min CI(MOD-sp4) 1.9 l/min/m\S\2 SV(MOD-sp4) 59.0 ml SI(MOD-sp4) 29.8 ml/m\S\2 CO(MOD-sp2) 2.8 l/min CI(MOD-sp2) 1.4 l/min/m\S\2 SV(MOD-sp2) 43.0 ml SI(MOD-sp2) 21.8 ml/m\S\2 Doppler Measurements and Calculations MV E max alexa 70.6 cm/sec MV A max alexa 84.1 cm/sec MV E/A 0.84 MV P1/2t max alexa 73.8 cm/sec MV P1/2t 42.5 msec MVA(P1/2t) 5.2 cm\S\2 MV dec slope 508.5 cm/sec\S\2 MV dec time 0.15 sec Ao V2 max 107.5 cm/sec Ao max PG 4.6 mmHg Ao max PG (full) 1.2 mmHg AI max alexa 419.4 cm/sec AI max PG 70.4 mmHg AI dec slope 221.5 cm/sec\S\2 AI P1/2t 554.6 msec LV V1 max PG 3.4 mmHg LV V1 max 92.2 cm/sec PA V2 max 84.3 cm/sec PA max PG 2.8 mmHg PI max alexa 145.5 cm/sec PI max PG 8.5 mmHg PI dec slope 143.8 cm/sec\S\2 PI P1/2t 296.4 msec TR max alexa 228.4 cm/sec
[2017-01-23] MEDS ORDERED: ASPEC81 PO (17:29)
[2017-01-24] VITALS: BP 102/64; PULSE 74; TEMP 36.8; O2SAT 92
[2017-01-24 04:00] VITALS: O2SAT 94
[2017-01-24 04:14] VITALS: BP 108/60; PULSE 76; TEMP 36.7; O2SAT 92
[2017-01-24 07:23] VITALS: BP 123/71; PULSE 72; TEMP 36.9; O2SAT 94
[2017-01-24 08:14] LABS: PROTHROMBIN TIME (PATIENT) 11.2 SECONDS (9.0-12.0)
[2017-01-24] MEDS: PSYLLIUM 58.6% PWD PACK S\\F PO SCH (08:14)
[2017-01-24] MEDS: FINASTERIDE 5 MG TAB PO SCH (08:14)
[2017-01-24] MEDS: TAMSULOSIN HCL 0.4 MG CAP PO SCH (08:14)
[2017-01-24] MEDS: ACETAMINOPHEN 500 MG TAB PO PRN (08:19)
[2017-01-24] MEDS: ENOXAPARIN 80 MG/0.8 ML SYR SQ SCH (11:03)
[2017-01-24 11:51] VITALS: BP 136/81; PULSE 65; TEMP 36.8; O2SAT 94
[2017-01-24 14:25] VITALS: BP 136/81; PULSE 65; TEMP 36.8; O2SAT 94
[2017-01-24] MEDS ORDERED: NURSING VERBAL MED ORDER ONE (14:30)
--- NOTE | 2017-01-24 14:42 | Progress Note ---
Internal Med Progress Note Date of Service: Jan 24, 2017. Provider Documentation: SUBJECTIVE: feels much better than yesterday no complain of pleuritic chest pain /no MOSQUERA has minimum cough -no productive OBJECTIVE: Vital Signs-as noted below Exam: General-comfortable , no sign of distress Eyes-sclera non icteric ENT-NAD Neck-no JVD Lungs-no rale or wheeze noted Heart-regular S1/S2 Abdomen-soft, non tender Extremities-no rash or deformity , no calf tenderness noted Neuro-AAO x3, no focal neurological deficit Lab data as noted below. ASSESSMENT & PLAN: BILATERAL PULMONARY EMBOLI/LOWER EXT DVT Patient presented to ED with left-sided pleuritic chest pain/hypoxia CTA of chest demonstrated bilateral pulmonary emboli. lower ext Doppler shows : nearly occlusive deep venous thrombosis identified in the right common femoral vein which extends into the superficial femoral vein. no DVT on Rt femoral vein risk factor for DVT/PE Status post ROSENDO about 3 months ago. family hx of blood clots : 2 siblings have history of thromboembolic disease. Brother had DVT/PE associated with a femur fracture. Sister had a pulmonary embolism without apparent provocation. hypercoagulable work up obtained in the ED before enoxaparin was initiated. Patient has no history of malignancy. Patient has lost some weight, but is clearly intentional with diet and exercise. Colonoscopy 2014 demonstrated a small tubular adenoma. Father had history of prostate carcinoma Patient has been followed by Urology for BPH. PSA -wnl ' Pt is continued with therapeutic Lovenox bridge -will need at least 5 days of overlap tx or 2 days of overlap while INR is therapeutic pt started on Coumadin ( very high co pay for Direct oral anticoagulants ) script sent to Pt's Pharm[facility] [address] [facility] co pay for 7 days supply to twice daily dose 250 $ changed dose to once daily 1.5 mg /kg -120mg /daily for 5 days for less co -pay Coagulation clinic at [facility] notified for continued follow up of anticoagulation tx pt given booklet for Coumadin will benefit with outpatient Hematology consultation. no complain of pleuritic chest pain.-Prednisone D/radha stable to be discharged home today on Lovenox bridge and Coumadin Lab : PT/INR on Saturday01/28/17 HYPOXIA / PULMONARY ATELECTASIS -resolved in room air , no hypoxia on exertion symptoms of pleuritic chest pain should improve with continued anticoagulation secondary to pulmonary emboli; atelectasis pt is asked to use Incentive spirometry. expecting improvement of MOSQUERA /hypoxia with exertion with ongoing anticoagulation ECHO shows: * There is borderline concentric left ventricular hypertrophy. * The left ventricular wall motion is normal. * Left ventricular systolic function is normal. * Ejection Fraction = 65-70%. * Grade I diastolic dysfunction, (abnormal relaxation pattern). * The right ventricle is normal in size and function. * Doppler findings do not suggest pulmonary hypertension. * A patent foramen ovale is present. Pt is asked to take Aspirin 81 mg daily for stroke prophylaxis BPH Continue finasteride and tamsulosin. PSA wnl VTE PROPHYLAXIS Receiving SQ enoxaparin therapeutic dose /Coumadin RESUSCITATION STATUS level 1 full code DISPOSITION discharge home today Medical follow-up with Dr. Scherer. . Vital Signs: Date Time Temp Pulse Resp B/P (MAP) Pulse Ox O2 Delivery O2 Flow Rate FiO2 01/24/17 14:25 36.8 65 16 94 Room Air 01/24/17 12:00 Room Air 01/24/17 11:51 36.8 65 16 136/81 (99) 94 Room Air 01/24/17 08:00 Room Air 01/24/17 07:23 36.9 72 18 123/71 (88) 94 Room Air 01/24/17 04:14 36.7 76 18 108/60 (76) 92 Room Air 01/24/17 04:00 94 Nasal Cannula 2.0 01/24/17 00:00 36.8 74 18 102/64 (77) 92 Room Air 01/23/17 23:59 94 Nasal Cannula 2.0 01/23/17 20:00 94 Nasal Cannula 2.0 01/23/17 19:34 37.1 80 18 106/65 (79) 90 Room Air 01/23/17 16:00 94 Nasal Cannula 2.0 01/23/17 15:50 36.7 65 18 97/56 (70) 94 Nasal Cannula 2.0 Lab Results: Results Past 24 Hours Test 01/24/17 07:38 Range/Units Prothrombin Time 11.2 9.0-12.0 SECONDS Prothromb Time International Ratio 1.0 0.9-1.1
[2017-01-24] MEDS ORDERED: ENOXAPARIN 80 MG/0.8 ML SYR SQ SCH (14:45)
[2017-01-24] MEDS: WARFARIN SOD 5 MG TAB PO SCH (15:01)
--- NOTE | 2017-01-24 15:09 | Discharge Summary ---
Discharge Summary Date of Service Jan 24, 2017. Discharge Summary Admission Date: Jan 22, 2017 at 22:38 Discharge Date: Jan 24, 2017 Discharge Disposition: Home Principal Diagnosis: (1) DVT (deep venous thrombosis) (2) Bilateral pulmonary embolism Procedures: CT CHEST WITH CONTRAST : IMPRESSION: 1. Bilateral pulmonary emboli without radiographic evidence of right heart straightening. 2. Extensive opacities in the lower lobes in a similar distribution as pulmonary emboli. Although these are not characteristic of pulmonary infarcts at this time, these are likely related to vascular compromise. LOWER EXT DOPPLER USG : IMPRESSION: 1. There is nearly occlusive deep venous thrombosis identified in the right common femoral vein which extends into the superficial femoral vein. 2. The remaining deep veins of the right lower extremity are clear. 3. There is no sonographic evidence of deep venous thrombosis identified in the left lower extremity. ECHO : The left ventricle is normal in size. There is borderline concentric left ventricular hypertrophy. The left ventricular wall motion is normal. Left ventricular systolic function is normal. Ejection Fraction = 65-70%. Grade I diastolic dysfunction, (abnormal relaxation pattern). The right ventricle is normal in size and function. Medication Reconciliation New Medications: Aspirin (Aspirin EC Low Dose) 81 Mg Ectab 1 TAB PO DAILY for 30 Days, #30 TABS 3 Refills Enoxaparin (Lovenox) 120 Mg/0.8 Ml Inj 120 MG SC DAILY for 5 Days, #5 EA Warfarin Sod (Coumadin) 7.5 Mg Tab 1 TAB PO DAILY for 30 Days, #30 TABS Continued Medications: Finasteride (Finasteride) 5 Mg Tab 5 MG PO QAM Ketoconazole (Topical) (Xolegel) 2 % Gel 1 APPLN TOP Q2D PRN for Rosacea USE DIRECTED Metronidazole (Topical) (Metrogel) 0.75 % Gel 1 APPLN TOP UD PRN for Rosacea APPLY DIRECTED Psyllium (Eq Fiber Therapy) 48.57 % Pow 1 TSP PO QAM Tamsulosin Hcl (Flomax) 0.4 Mg Cap 0.4 MG PO QAM, CAP Discontinued Medications: Aspirin (Aspirin Chewable) 81 Mg Chew 81 MG PO DAILY, TAB Ibuprofen (Advil) 200 Mg Tab 400 MG PO Q6H PRN for Pain, TAB Referrals At Discharge Follow up Referrals: Oncology/Hematology Referral - Please Call For Appointment with Jones, Josue A. , M.D. Admission Information HPI (per Admitting provider): 66 YO male followed by Dr. Scherer. He enjoys good health and is physically active. Medial problems include BPH and remote history of ureteral calculus. Underwent uncomplicated left ROSENDO by Dr. Dee on 10/26/16. Received aspirin for VTE prophylaxis. Recently traveled to and from [place] by air. Returned home about 5 days prior to admission. Pt estimates that periods of immobilization on planes were only about 1 hour at a time. Developed left-sided chest / back pain this morning around 0300. Sudden onset of the discomfort. Rated the pain as 3/10. It did not radiate. No fever, cough, hemoptysis, SOB. Thought that he might be passing a renal calculus. Did not take any analgesics at that time. Went back to sleep; re-awakened abound 0530 with persistent pain, unchanged. Around 1200 the pain was somewhat more severe. He took ibuprofen with perhaps minimal improvement. Pain became more severe around 1800 and was noted to be worse with inspiration. [place] dyspneic as the pain worsened. No pain or swelling in lower extremities. He came to the ED for evaluation. CTA of chest in ED demonstrated bilateral pulmonary emboli. . Physical Exam (per Admitting): General Appearance: WD/WN, + moderate distress Head: normocephalic, atraumatic Eyes: normal inspection, PERRL, EOMI ENT: normal ENT inspection, hearing grossly normal, pharynx normal Neck: supple, no adenopathy, thyroid normal, trachea midline Respiratory/Chest: no respiratory distress, no accessory muscle use, + rales (few left base) Cardiovascular: regular rate, rhythm, no edema, no gallop, no JVD, no murmur , normal peripheral pulses, + pertinent finding (normal P2) Abdomen/GI: normal bowel sounds, non tender, soft, no organomegaly, no pulsatile mass Extremities/Musculoskelatal: normal inspection, no calf tenderness, normal capillary refill, no pedal edema Neurologic/Psych: onsite health coach II-XII nml as tested (PERRL, EOMI, no dysarthria, no facial palsy), no motor/sensory deficits (motor upper and lower extr 5/5), alert , normal mood/affect, oriented x 3 Skin: normal color, warm/dry, no rash, + pertinent finding (numerous seborrheic keratoses) Lymphatic: no adenopathy (cervical) Hospital Course BILATERAL PULMONARY EMBOLI/LOWER EXT DVT Patient presented to ED with left-sided pleuritic chest pain/hypoxia CTA of chest demonstrated bilateral pulmonary emboli. lower ext Doppler shows : nearly occlusive deep venous thrombosis identified in the right common femoral vein which extends into the superficial femoral vein. no DVT on Rt femoral vein risk factor for DVT/PE Status post ROSENDO about 3 months ago. family hx of blood clots : 2 siblings have history of thromboembolic disease. Brother had DVT/PE associated with a femur fracture. Sister had a pulmonary embolism without apparent provocation. hypercoagulable work up obtained in the ED before enoxaparin was initiated. Patient has no history of malignancy. Patient has lost some weight, but is clearly intentional with diet and exercise. Colonoscopy 2014 demonstrated a small tubular adenoma. Father had history of prostate carcinoma Patient has been followed by Urology for BPH. PSA -wnl ' Pt is continued with therapeutic Lovenox bridge -will need at least 5 days of overlap tx or 2 days of overlap while INR is therapeutic pt started on Coumadin ( very high co pay for Direct oral anticoagulants ) script sent to Pt's Pharmacy [facility] [address] [facility] [address] [facility] co pay for 7 days supply to twice daily dose 250 $ changed dose to once daily 1.5 mg /kg -120mg /daily for 5 days for less co -pay Coagulation clinic at [facility] notified for continued follow up of anticoagulation tx pt given booklet for Coumadin will benefit with outpatient Hematology consultation. no complain of pleuritic chest pain.-Prednisone D/radha stable to be discharged home today on Lovenox bridge and Coumadin Lab : PT/INR on Saturday01/28/17 HYPOXIA / PULMONARY ATELECTASIS -resolved in room air , no hypoxia on exertion symptoms of pleuritic chest pain should improve with continued anticoagulation secondary to pulmonary emboli; atelectasis pt is asked to use Incentive spirometry. expecting improvement of MOSQUERA /hypoxia with exertion with ongoing anticoagulation ECHO shows: * There is borderline concentric left ventricular hypertrophy. * The left ventricular wall motion is normal. * Left ventricular systolic function is normal. * Ejection Fraction = 65-70%. * Grade I diastolic dysfunction, (abnormal relaxation pattern). * The right ventricle is normal in size and function. * Doppler findings do not suggest pulmonary hypertension. * A patent foramen ovale is present. Pt is asked to take Aspirin 81 mg daily for stroke prophylaxis BPH Continue finasteride and tamsulosin. PSA wnl VTE PROPHYLAXIS Receiving SQ enoxaparin therapeutic dose /Coumadin RESUSCITATION STATUS level 1 full code DISPOSITION discharge home today Medical follow-up with Dr. Scherer. . Total time spent on discharge = 40 mins This includes examination of the patient, discharge planning, medication reconciliation, and communication with other providers. Discharge Instructions Discharge Instructions Date of Service Jan 23, 2017. Admission Reason for Admission: Pulmonary Emboli Discharge Discharge Diagnosis / Problem: (1) DVT (deep venous thrombosis) (2) Bilateral pulmonary embolism VTE Date & Time Date of VTE Diagnosis: Jan 22, 2017 Time of VTE Diagnosis: 21:00 Discharge Goals Goal(s): Decrease discomfort, Improve disease control, Diagnostic testing, Therapeutic intervention Activity Recommendations Activity Limitations: resume your previous activity . Instructions / Follow-Up Instructions / Follow-Up HOSPITAL FOLLOW UP : 01/29/2017 1:00 PM Earline Scherer MD General Internal Medicine [facility] ANTICOAGULATION CLINIC FOLLOW UP AT [facility] OFFICE WILL CALL WITH APPOINTMENT PLEASE HAVE REFERRAL TO HEMATOLOGY FOR FURTHER WORK UP FOR BLOOD CLOT DISORDER Medication Instructions: * Warfarin is a medicine prescribed to prevent blood clots * Warfarin will thin your blood and help prevent new clots * Take your medications exactly as directed * Never skip a dose. Never take a double dose. If you miss a dose, take it as soon as you remember * It is important for your doctor to monitor your prothrombin time (PT). This is a lab test * Keep your appointment for lab tests Risk of Adverse Drug Reactions and Interactions: * Warfarin increases your risk of bleeding * The food you eat and other medications you take can affect how Warfarin works in your body * Ask your doctor about daily aspirin therapy * It is very important to talk with your doctor about all of the other medicines , antibiotics, vitamins or herbal products that you are taking * All of your medication must be approved by your doctor, including new medicines, as well as medicines you have taken before you started taking Warfarin Diet: * In order for Warfarin to work properly, it is important to keep your intake of Vitamin K as consistent as possible * You should avoid any sudden change in Vitamin K intake * Report any significant changes in your diet or weight to your doctor Call your Primary Care doctor if you experience any of the following: * Swelling or Pain in your leg * Sudden, continuous pain deep in a muscle * Pain that worsens when you are active or when you stand still for a long time * Chest Pain * Sudden Shortness of Breath * Rapid or pounding heart beat * Fainting * Dizziness * Cough with blood or bloody sputum * Sweating more than normal * Bruises * Heavy or uncontrolled bleeding * Blood in your urine, stool or vomit * Black or tarry stools Caring for Your Self at Home: * Avoid sitting, standing or lying down for long periods without moving your legs and feet * When traveling by car, stop to get out and move around at least once every 3 hours * On long airplane, train or bus rides, get up and move around when possible * If you can't get up, wiggle your toes and tighten your calves to keep your blood moving Follow Up: It is important for you to keep your follow up appointments with your medical provider. 01/29/2017 1:00 PM Earline Scherer MD General Internal Medicine [facility] LAB WORK: PT/INR ON Saturday Current Hospital Diet Patient's current hospital diet: Regular Diet Discharge Diet Recommended Diet: Regular Diet Pending Studies Studies pending at discharge: yes List of pending studies: PT /INR CHECK ON Saturday FOLLOW UP AT ANTICOAGULATION CLINIC FOLLOW UP WITH RESULT FOR HYPERCOAGULABLE WORK UP Medical Emergencies . Who to Call and When: Medical Emergencies: If at any time you feel your situation is an emergency, please call 911 immediately. . Non-Emergent Contact Non-Emergency issues call your: Primary Care Provider . . "Provider Documentation" section prepared by Leni Navarro. . VTE Core Measure Inpt VTE Proph given/why not?: Enoxaparin (Lovenox)SQ, Warfarin (Coumadin) Reason no anticoag overlap I/P: Treatment provided - N/A Reason no anticoag overlap @DC: Treatment provided - N/A Additional Copies To Earline SCHERER M.D.
[2017-01-25 22:42] LABS: ANTITHROMBINIII ACTIVITY** 101 % activity (80-120); B2 GLYCOPROTEIN IGA <9 SAU (<=20); B2 GLYCOPROTEIN IGG <9 SGU (<=20); B2 GLYCOPROTEIN IGM <9 SMU (<=20); LUPUS ANTICOAGULANT** TC36573X Negative (Negative); PROTEIN C ACTIVITY** TC 1777X 132 % (70-180); PROTEIN S ACT(FUNCT)**1779X 89 % (70-150)
== END 2017-01-24 15:15 | disposition home or self-care (01) | DRG 176 ==
LOC: C.EDB 20:08 → C.2T 22:38 → ENRESERV 22:53
PROVIDERS: ADMIT Hospitalist; ATTEND Hospitalist
DX: I26.99 Other pulmonary embolism without acute cor pulmonale (principal); I82.411 Acute embolism and thrombosis of right femoral vein; N40.0 Benign prostatic hyperplasia without lower urinary tract symptoms; R09.02 Hypoxemia; L71.9 Rosacea, unspecified; Z96.641 Presence of right artificial hip joint; Z83.2 Family history of diseases of the blood and blood-forming organs and certain disorders involving the immune mechanism; Z79.82 Long term (current) use of aspirin; Z79.899 Other long term (current) drug therapy; Z79.1 Long term (current) use of non-steroidal anti-inflammatories (NSAID); Z87.891 Personal history of nicotine dependence